=== PATIENT | female | born 1995 | race Caucasian/White ===

== ENCOUNTER 2020-09-26 18:54 | Emergency (ER) | payer MEDICAID, SELFPAY ==
[2020-09-26 19:58] LABS: COVID-19 Test Negative (Negative)
[2020-09-26 20:54] VITALS: PULSE 86; RESP 18; TEMP 37.3; O2SAT 96; BMI 53.7
--- NOTE | 2020-09-26 21:25 | ED_ITS ---
HPI - URI/Sore Throat General Chief Complaint: Upper Respiratory Symptoms Stated Complaint: SOB, Diff breathing Time Seen by Provider: 09/26/20 21:24 Source: patient Mode of arrival: ambulatory History of Present Illness HPI Narrative: 25-year-old female, every day smoker, presents with with complaints of shortness of breath without a history of asthma, sore throat, cough with greenish sputum since this morning. Otherwise she denies any fever, chills, GI symptoms or symptoms. She does endorse that she had COVID-19 in the beginning of August. Related Data Previous Rx's Medication Instructions Recorded prednisone 40 mg PO DAILY 4 Days #8 tab 09/26/20 Allergies Allergy/AdvReac Type Severity Reaction Status Date / Time No Known Allergies Allergy Unverified 12/26/19 16:24 Review of Systems Review of Systems: Pertinent positives and negatives as stated in HPI 10 point review of systems is otherwise negative. PMFSH Past Medical History Source: nursing notes reviewed Medical History No known health problems Social History Social History Advance Directives: No Advance Directives Information Provided: Yes Patient : No Physical Exam Vital Signs: Vital Signs: Last Vital Signs Temp 99.1 F 09/26/20 20:54 Pulse 86 09/26/20 20:54 Resp 18 09/26/20 20:54 Pulse Ox 96 09/26/20 20:54 Body Mass Index 53.7 VITAL SIGNS: Reviewed. GENERAL: Well developed, well nourished, in no acute distress. HEAD: Normocephalic/atraumatic EYES: PERRLA, EOMI EARS: Ext canals without abnormality OROPHARYNX: no oral lesions noted, posterior pharynx clear NECK: Supple, no adenopathy LUNGS: Normal breath sounds. No adventitious sounds or accessory muscle use. SpO2<96> CARDIOVASCULAR: Regular rate and rhythm without noted murmurs ABDOMEN: Soft, non-tender, non-distended with bowel sounds. Course Course Course Narrative: This is a 25-year-old female with history and clinical presentation consistent with bronchitis. Patient was counseled on smoking cessation, provided with albuterol inhaler as well as initial dose of prednisone. MDM - URI/Sore Throat Lab Data Labs: Lab Results 09/26/20 Range/Units 19:31 COVID-19 ([facility]) Negative (Negative) COVID-19 Clin Com See Note Discharge Plan Discharge Clinical Impression: Bronchitis Patient Disposition: Home, Self-Care Instructions: Acute Bronchitis (ED) Additional Instructions: Return to the ER for worsening symptoms. Follow-up with your primary care provider in the next 2-3 days for re- evaluation. Prescriptions: New prednisone 20 mg tablet 40 mg PO DAILY 4 Days Qty: 8 RF: 0 Referrals: [facility] [Primary Care Provider] - 2 days
[2020-09-26] MEDS: Albuterol Sulfate 90 MCG 8 GM INHALER 4 PUFF INHALE (21:44)
[2020-09-26 21:45] VITALS: PULSE 86; O2SAT 96
[2020-09-26] MEDS: predniSONE 20 MG TABLET 40 MG PO (22:03)
== END 2020-09-27 00:06 | disposition home or self-care (01) ==
PROVIDERS: Emergency Provider Student in an Organized Health Care Education/Training Program
DX: J40 Bronchitis, not specified as acute or chronic (principal); F17.200 Nicotine dependence, unspecified, uncomplicated; Z20.822 Contact with and (suspected) exposure to COVID-19
CPT/HCPCS: 36415; 87635; 94640; 99283; 99284

== ENCOUNTER 2021-09-29 13:50 | Emergency (ER) | payer MEDICAID, SELFPAY ==
--- NOTE | ~2021-09-29 | XR_ITS ---
EXAMINATION: XR CHEST CLINICAL INFORMATION: Cough and fever COMPARISON: Previous chest x-ray April 2017 TECHNIQUE: 2 views of the chest were obtained. FINDINGS: No significant abnormality is noted involving the heart, lungs, mediastinum, bony thorax or soft tissues. XR/XR chest 2V IMPRESSION: Unremarkable examination.
[2021-09-29 14:18] VITALS: BP 193/70; PULSE 99; RESP 20; TEMP 36.7; O2SAT 97; BMI 51.7
[2021-09-29 14:47] LABS: COVID-19 Test Negative (Negative)
--- NOTE | 2021-09-29 14:47 | ED_ITS ---
HPI - URI/Sore Throat General Chief Complaint: Upper Respiratory Symptoms Stated Complaint: bronchitis, cvoid test Time Seen by Provider: 09/29/21 14:24 Source: patient Mode of arrival: ambulatory Limitations: no limitations History of Present Illness HPI Narrative: 26-year-old female with history of bronchitis here with 2 days of cough which is productive with green sputum, chills, subjective fever, wheezing. No chest pain, leg swelling, leg pain. No vomiting, diarrhea, abdominal pain. History of bronchitis in the past. Patient ran out of her inhaler. She is also seeking a COVID test Related Data Previous Rx's Medication Instructions Recorded prednisone 20 mg tablet 40 mg PO DAILY 4 days #8 tabs 09/26/20 azithromycin 250 mg tablet See Rx Instructions PO .COMPLEX #6 09/29/21 tabs benzonatate 200 mg capsule 200 mg PO TID PRN cough #20 caps 09/29/21 prednisone 20 mg tablet 40 mg PO DAILY #8 tabs 09/29/21 Allergies Allergy/AdvReac Type Severity Reaction Status Date / Time No Known Allergies Allergy Unverified 12/26/19 16:24 Review of Systems Review of Systems: Yes all other systems are reviewed and are negative Constitutional: Constitutional: Reports no additional constitutional complaints, Denies body ache(s), Reports chills, Reports fever(s), Denies headache(s) and Denies weakness Eyes: Eyes: Reports no additional eye complaints and Denies change in vision ENT: Reports system reviewed and no additional complaints, except as documented, Denies dizziness, Denies headache(s), Denies nasal congestion, Denies nasal discharge and Denies neck pain Cardiovascular: Cardiovascular: Reports no additional cardiovascular complaints, Denies chest pain, Denies leg edema and Denies dyspnea Respiratory: Respiratory: Reports no additional respiratory complaints, Repo rts cough, Denies dyspnea and Reports wheezing Gastrointestinal: Gastrointestinal: Reports no additional gastrointestinal complaints, Denies abdominal pain, Denies diarrhea, Denies nausea and Denies vomiting Genitourinary: Genitourinary: Reports no additional female genitourinary complaints and Denies urinary incontinence Musculoskeletal: Musculoskeletal: Reports no additional musculoskeletal complaints, Denies back pain, Denies arthralgias, Denies joint swelling, Denies neck pain, Denies numbness and Denies tingling Integumentary/Breasts: Skin/Breast: Reports system reviewed and no additional complaints, except as docu and Denies rash Neurologic: Reports system reviewed and no additional complaints, except as documented, Denies Abnormal speech present, Denies dizziness, Denies headache(s), Denies numbness, Denies tingling and Denies weakness Allergic/Immunologic: Allergic/Immunologic: Reports wheezing [facility] Past Medical History Attestation statement: The following information was validated with the patient. Source: old records reviewed and nursing notes reviewed Medical History No known health problems Social History Social History Advance Directives: No Advance Directives Information Provided: No Physical Exam Vital Signs: Vital Signs: Last Vital Signs Temp 98.0 F 09/29/21 14:18 Pulse 96 09/29/21 15:13 Resp 20 09/29/21 15:13 BP 193/70 H 09/29/21 14:18 Pulse Ox 97 09/29/21 14:18 O2 Del Method 09/29/21 14:18 BMI result Body Mass Index 51.7 Const: General: cooperative, healthy appearing, comfortable and no acute distress Orientation/consciousness: patient oriented x3 Limitations: no limitations HEENT: Head: Yes normal to inspection Ears: hearing grossly normal bilaterally General nose exam: Normal external nose present Face and sinus: Yes normal facial exam Mouth: Normal oral and palatal mucosa present Throat: Yes posterior oropharynx normal Eyes: General: appearance normal, both eyes and all related structures Pupils: Equal, round and reactive pupils present Neck: Neck: Yes normal visual inspection Chest: Chest palpation & inspection: normal inspection of the chest Resp: Other: Expiratory wheezing throughout Effort & Inspection: normal respiratory effort Cardio: Rate: regular rate Rhythm: regular rhythm Peripheral pulses: Peripheral pulses 2+ throughout GI: Inspection: Yes normal to inspection Palpation (GI): Soft to palpation and nontender Auscultation: normal bowel sounds Back/Spine/Pelvis: Thoracic/Lumbar Spine: thoracic and lumbar spine normal to inspection Skin: General skin exam: no rashes or lesions noted Neuro: General: patient oriented x3, no focal motor deficits and normal sensation to monofilament Cranial nerves: Yes Equal, round and reactive pupils present Cognition (Neuro): normal cognition Speech: No Abnormal spe ech present Gait exam (Neuro): Normal gait present Motor exam (neuro): 5/5 motor strength present throughout Extrem: General: Yes normal to inspection Course Course Course Narrative: Chest x-ray shows no acute finding. COVID screen is negative. Will treat for bronchitis with course of antibiotics and prednisone. Patient will also be sent home with albuterol MDI. Reviewed worrisome signs and symptoms of when to return to the emergency department. Comfortable discharge home. MDM - URI/Sore Throat MDM Narrative Medical decision making narrative: 26-year-old female with a history of bronchitis here with 2 days of productive cough, wheezing, difficulty breathing at times, subjective fevers. On arrival vitals are stable. Patient has expiratory wheezing throughout. Rapid COVID negative. Will give albuterol MDI, p.o. prednisone, check chest x-ray Medical Records Attestation: I reviewed the patient's medical records. Lab Data Attestation: I reviewed the patient's lab results. Labs: Lab Results 09/29/21 Range/Units 14:22 COVID-19 ([facility]) Negative (Negative) COVID-19 Clin Com See Note Imaging Data Chest x-ray: Attestation: I personally reviewed and interpreted this imaging study as follows: Radiologist's impression: [address] [address] XRay Report Signed Patient: Jessica Ma MR#: [id number] : 1995 Acct:[id number] Age/Sex: 26 / F ADM Date: 09/29/21 Loc: .ED Attending Dr: Ordering Physician: Arlene Mahoney NP Date of Service: 09/29/21 Procedure(s): XR chest 2V Accession Number(s): [id number] cc: Arlene Mahoney NP~ EXAMINATION: XR CHEST CLINICAL INFORMATION: Cough and fever COMPARISON: Previous chest x-ray April 2017 TECHNIQUE: 2 views of the chest were obtained. FINDINGS: No significant abnormality is noted involving the heart, lungs, mediastinum, bony thorax or soft tissues. XR/XR chest 2V IMPRESSION: Unremarkable examination. Discharge Plan Discharge Clinical Impression: Bronchitis Patient Disposition: Home, Self-Care Instructions: How to Use a Metered-Dose Inhaler (ED), Acute Bronchitis (ED) Additional Instructions: COVID test is negative Chest x-ray shows no evidence of pneumonia. Use the inhaler 2 puffs every 4-6 hours as needed for cough or wheezing Return for increasing shortness of breath, chest pain Prescriptions: New prednisone 20 mg tablet 40 mg PO DAILY Qty: 8 0RF azithromycin 250 mg tablet See Rx Instructions .ROUTE .COMPLEX Qty: 6 0RF Rx Instructions: For 250 mg dose pack: take 500 mg today (day 1), then 250 mg for 4 days (days 2-5) benzonatate 200 mg capsule 200 mg PO TID PRN (Reason: cough) Qty: 20 0RF No Action prednisone 20 mg tablet 40 mg PO DAILY 4 Days Qty: 8 0RF Referrals: [facility] [Primary Care Provider] - Stand Alone Forms: Work/School Release
[2021-09-29] MEDS: predniSONE 20 MG TABLET 60 MG PO (15:01)
[2021-09-29] MEDS: Albuterol Sulfate 90 MCG 8 GM INHALER 2 PUFF INHALE (15:11)
[2021-09-29 15:13] VITALS: PULSE 96; RESP 20; O2SAT 94
== END 2021-09-29 16:18 | disposition home or self-care (01) ==
PROVIDERS: Emergency Provider Emergency Medicine
DX: J40 Bronchitis, not specified as acute or chronic (principal); R05.9 Cough, unspecified; R50.9 Fever, unspecified; Z20.822 Contact with and (suspected) exposure to COVID-19; Z79.899 Other long term (current) drug therapy
CPT/HCPCS: 71046; 87635; 94640; 99284

== ENCOUNTER 2021-11-11 16:33 | Emergency (ER) | payer MEDICAID, SELFPAY ==
[2021-11-11 17:28] VITALS: BP 127/60; PULSE 79; RESP 16; TEMP 36.7; O2SAT 97; BMI 51.7
[2021-11-11 17:56] LABS: Appearance Urine CLEAR; Color Urine YELLOW; Glucose Urine UA NEG (NEG); Leukocyte Esterase Urine NEG (NEG); Nitrite Urine NEG (NEG); Specific Gravity - Urine 1.025 (1.005-1.025); Urine Blood NEG (NEG); Urine Ketones NEG (NEG); Urine Protein NEG (NEG-TRACE)
[2021-11-11 17:59] LABS: Strep A Nucleic Acid Negative (Negative)
[2021-11-11 17:59] LABS: UPreg QC Valid YES; Urine Pregnancy NEGATIVE (NEGATIVE)
[2021-11-11 18:01] LABS: COVID-19 Test Negative (Negative); IDNOW Serial# 16C4AD1C
--- NOTE | 2021-11-11 19:19 | ED_ITS ---
HPI - General Adult General Chief complaint: General Medical Stated complaint: burning when urinating also ? sinus infection Time Seen by Provider: 11/11/21 19:15 Source: patient Mode of arrival: ambulatory Limitations: no limitations History of Present Illness HPI narrative: Patient comes to emergency room complaining of ear pain, sore throat, congestion and dysuria. Patient states all of her symptoms started 3 days ago. Patient denies fever chills Related Data Previous Rx's Medication Instructions Recorded prednisone 20 mg tablet 40 mg PO DAILY 4 days #8 tabs 09/26/20 azithromycin 250 mg tablet See Rx Instructions PO .COMPLEX #6 09/29/21 tabs benzonatate 200 mg capsule 200 mg PO TID PRN cough #20 caps 09/29/21 prednisone 20 mg tablet 40 mg PO DAILY #8 tabs 09/29/21 Allergies Allergy/AdvReac Type Severity Reaction Status Date / Time No Known Allergies Allergy Verified 11/11/21 17:31 Review of Systems Review of Systems: Constitutional : No Weight loss, No Fever, No Chills, No Night Sweats, No Fatigue, No Malaise ENT/Mouth : No Hearing loss, complaining of bilateral ear discomfort, nasal congestion, mild sore throat Eyes: No Eye Pain, No Swelling, No Redness, No Foreign Body, No Discharge, No Vision Changes Cardiovascular : No Chest Pain, No SOB, No Dyspnea on Exertion, No Orthopnea, No Edema, No Palpitations Respiratory : No Cough, No Sputum, No Wheezing, No Smoke Exposure, No Dyspnea Gastrointestinal : No Nausea, No Vomiting, No Diarrhea, No Constipation, No abdominal Pain, No Hematochezia, No Melena Genitourinary : no irregular bleeding, complaining of Dysuria, No Urinary Frequency, No Hematuria, No Urinary Incontinence, No Urgency, No Flank Pain, No Urinary Flow Changes, No Hesitancy Musculoskeletal : No joint pain, No Myalgias, No Joint Swelling Skin : No Skin Lesions, No rash Neuro : No Weakness, No Numbness, No Paresthesias, No Loss of Consciousness, No Dizziness, No Headache Psych : No Anxiety/Panic, No Depression, No SI/HI/AH/VH, No Social Issues, Heme/Lymph: No Bruising, No Bleeding,No Lymphadenopathy Endocrine : No Polyuria, No Polydipsia, No Temperature Intolerance PMFSH Past Medical History Medical History No known health problems Physical Exam ED Vital Signs: Vital Signs - 24 hr 11/11/21 17:28 Temperature 98.0 F Pulse Rate 79 Respiratory Rate 16 Blood Pressure 127/60 Pulse Oximetry 97 Oxygen Delivery Method Room Air BMI result Body Mass Index 51.7 Const Other: Appearance: Alert. Oriented X3. No acute distress. Eyes: Pupils equal, round and reactive to light. ENT: Mildly erythematous oropharynx, no vesicles, no exudates, no abscesses Neck: Normal inspection. Neck supple. No lymph nodes noted. No crepitus CVS: Normal heart rate and rhythm. Pulses normal. Normal S1 and S2 Respiratory: No respiratory distress. Breath sounds normal. No Wheezing. No rales Abdomen: Soft and nontender. No rigidity. No distention. Skin: Skin warm and dry. Normal skin color. Normal skin turgor. Extremities: No lower extremity edema. No Lacerations. No Rash Neuro: Oriented X 3. No motor deficit. No sensory deficit. Moving all extremities. No slurred speech. CN 2 through 12 grossly intact Psych: calm, cooperative, normal affect Course Course Course Narrative: Patient tested negative for COVID-19, strep, negative test, negative for UTI. Patient likely has a viral syndrome. Medical Decision Making Lab Data Labs: Lab Results 11/11/21 11/11/21 11/11/21 Range/Units 17:36 17:36 17:48 Urine Color YELLOW Urine Appearance CLEAR Urine pH 6.0 (5.0-8.0) Ur Specific [place] 1.025 (1.005-1.025) Urine Protein NEG (NEG-TRACE) MG/DL Urine Glucose (UA) NEG (NEG) MG/DL Urine Ketones NEG (NEG) MG/DL Urine Blood NEG (NEG) Urine Nitrite NEG (NEG) Ur Leukocyte Esterase NEG (NEG) Urine Test (NEGATIVE) COVID-19 ([facility]) Negative (Negative) COVID-19 Clin Com See Note S. pyogenes GrpA LEON Negative (Negative) 11/11/21 Range/Units 17:48 Urine Color Urine Appearance Urine pH (5.0-8.0) Ur Specific [place] (1.005-1.025) Urine Protein (NEG-TRACE) MG/DL Urine Glucose (UA) (NEG) MG/DL Urine Ketones (NEG) MG/DL Urine Blood (NEG) Urine Nitrite (NEG) Ur Leukocyte Esterase (NEG) Urine Test NEGATIVE (NEGATIVE) COVID-19 ([facility]) (Negative) COVID-19 Clin Com S. pyogenes GrpA LEON (Negative) Discharge Plan Discharge Clinical Impression: Acute viral syndrome Patient Disposition: Home, Self-Care Instructions: Viral Syndrome (ED) Additional Instructions: Please follow-up with your primary care physician tomorrow. If you have any worsening or new symptoms, please return to the emergency room or call 911 Prescriptions: No Action prednisone 20 mg tablet 40 mg PO DAILY 4 Days Qty: 8 0RF prednisone 20 mg tablet 40 mg PO DAILY Qty: 8 0RF azithromycin 250 mg tablet See Rx Instructions .ROUTE .COMPLEX Qty: 6 0RF Rx Instructions: For 250 mg dose pack: take 500 mg today (day 1), then 250 mg for 4 days (days 2-5) benzonatate 200 mg capsule 200 mg PO TID PRN (Reason: cough) Qty: 20 0RF
== END 2021-11-11 19:34 | disposition home or self-care (01) ==
PROVIDERS: Emergency Provider Emergency Medicine
DX: B34.9 Viral infection, unspecified (principal); Z20.822 Contact with and (suspected) exposure to COVID-19; H92.03 Otalgia, bilateral
CPT/HCPCS: 81003; 81025; 87635; 87651; 99282; 99283

== ENCOUNTER 2022-04-24 16:14 | Emergency (ER) | payer MEDICAID, SELFPAY ==
[2022-04-24 16:35] VITALS: BP 139/67; PULSE 76; RESP 18; TEMP 36.5; O2SAT 98; BMI 54.5
--- NOTE | 2022-04-24 16:38 | ED.GENADULT ---
HPI - General Adult General Chief complaint: Dental/Oral <PACO Aguilar - Last Filed: 04/24/22 18:46> Stated complaint: tonsilitis? <PACO Aguilar - Last Filed: 04/24/22 18:46> Time Seen by Provider: 04/24/22 17:12 <PACO Aguilar - Last Filed: 04/24/22 18:46> Source: patient <Flakito Rosa MD - Last Filed: 04/24/22 17:54> Mode of arrival: ambulatory <Flakito Rosa MD - Last Filed: 04/24/22 17:54> Limitations: no limitations <Flakito Rosa MD - Last Filed: 04/24/22 17:54> History of Present Illness HPI narrative: Patient history of enlarged tonsils with recurrent infection had strep throat 2 months ago taking antibiotics plan to see ENT specialist for tonsillectomy comes here for throat pain no fever no chills last few days <Flakito Rosa MD - Last Filed: 04/24/22 17:54> Related Data Home medications: Previous Rx's Medication Instructions Recorded prednisone 20 mg tablet 40 mg PO DAILY 4 days #8 tabs 09/26/20 azithromycin 250 mg tablet See Rx Instructions PO .COMPLEX #6 09/29/21 tabs benzonatate 200 mg capsule 200 mg PO TID PRN cough #20 caps 09/29/21 prednisone 20 mg tablet 40 mg PO DAILY #8 tabs 09/29/21 cefuroxime axetil 500 mg tablet 500 mg PO BID #20 tabs 04/24/22 <PACO Aguilar - Last Filed: 04/24/22 18:46> Allergies/adverse reactions: Allergies Allergy/AdvReac Type Severity Reaction Status Date / Time No Known Allergies Allergy Verified 04/24/22 16:34 <PACO Aguilar - Last Filed: 04/24/22 18:46> Review of Systems Review of Systems: Yes all other systems are reviewed and are negative <Flakito Rosa MD - Last Filed: 04/24/22 17:54> PMFSH Past Medical History Medical History: Medical History No known health problems <PACO Aguilar - Last Filed: 04/24/22 18:46> Social History Social History: Social History Advance Directives: No Advance Directives Information Provided: Yes <PACO Aguilar - Last Filed: 04/24/22 18:46> Physical Exam ED Vital Signs: Vital Signs - 24 hr 04/24/22 16:35 Temperature 97.7 F Pulse Rate 76 Respiratory Rate 18 Blood Pressure 139/67 Pulse Oximetry 98 Oxygen Delivery Method Room Air BMI result Body Mass Index 54.5 <PACO Aguilar - Last Filed: 04/24/22 18:46> Vital Signs - 24 hr 04/24/22 16:35 Temperature 97.7 F Pulse Rate 76 Respiratory Rate 18 Blood Pressure 139/67 Pulse Oximetry 98 Oxygen Delivery Method Room Air BMI result Body Mass Index 54.5 <Flakito Rosa MD - Last Filed: 04/24/22 17:54> Appearance: Alert. Oriented X3. No acute distress. Obese ENT: Enlarged tonsils slightly erythematous no exudate Oral Mucosa moist Neck: Normal inspection. Neck supple. CVS: Normal heart rate and rhythm. Pulses normal. Respiratory: No respiratory distress. Equal air entry bilateral, Neuro: Oriented X 3. <Flakito Rosa MD - Last Filed: 04/24/22 17:54> Course Course Course Narrative: RME; sore throat for months and recurrend tonsillitis with scheduled tonsillecotmy in june presents to the ED for sore throat. physcial exam negative for signs of PEritonsillar abscess. Strep and SARS ordered <PACO Aguilar - Last Filed: 04/24/22 18:46> Medications Administered Discontinued Medications Generic Name Dose Route Start Last Admin Trade Name Freq PRN Reason Stop Dose Admin Cefuroxime Axetil 500 mg 04/24/22 17:21 04/24/22 17:40 Cefuroxime Axetil 500 Mg Tablet PO 04/24/22 17:22 500 mg ONCE ONE Administration <PACO Aguilar - Last Filed: 04/24/22 18:46> Medications Administered Discontinued Medications Generic Name Dose Route Start Last Admin Trade Name Freq PRN Reason Stop Dose Admin Cefuroxime Axetil 500 mg 04/24/22 17:21 04/24/22 17:40 Cefuroxime Axetil 500 Mg Tablet PO 04/24/22 17:22 500 mg ONCE ONE Administration <Flakito Rosa MD - Last Filed: 04/24/22 17:54> Medical Decision Making Medical Decision Making [facility] Narrative: Patient's strep throat will give her Ceftin advised to follow with ENT for further management for enlarged tonsils with recurrent infection <Flakito Rosa MD - Last Filed: 04/24/22 17:54> Lab Data [facility] Lab Attestation statement: I reviewed the patient's lab results. <Flakito Rosa MD - Last Filed: 04/24/22 17:54> Labs: Lab Results 04/24/22 04/24/22 Range/Units 17:03 17:03 Influenza Type A (PCR) NEGATIVE (Negative) Influenza Type B (PCR) NEGATIVE (Negative) RSV RNA Qual (PCR) NEGATIVE (Negative) SARS-CoV-2 RNA (RT-PCR) NEGATIVE (Negative) S. pyogenes GrpA LEON Positive A (Negative) <PACO Aguilar - Last Filed: 04/24/22 18:46> Lab Results 04/24/22 04/24/22 Range/Units 17:03 17:03 Influenza Type A (PCR) NEGATIVE (Negative) Influenza Type B (PCR) NEGATIVE (Negative) RSV RNA Qual (PCR) NEGATIVE (Negative) SARS-CoV-2 RNA (RT-PCR) NEGATIVE (Negative) S. pyogenes GrpA LEON Positive A (Negative) <Flakito Rosa MD - Last Filed: 04/24/22 17:54> Discharge Plan Discharge Clinical Impression: Acute streptococcal pharyngitis <PACO Aguilar - Last Filed: 04/24/22 18:46> Patient Disposition: Home, Self-Care <PACO Aguilar Last Filed: 04/24/22 18:46> Instructions: Strep Throat (ED) <PACO Aguilar Last Filed: 04/24/22 18:46> Additional Instructions: Take antibiotic as prescribed Saline gargles as advised Follow-up with the ENT as scheduled <PACO Aguilar Last Filed: 04/24/22 18:46> Prescriptions: New cefuroxime axetil 500 mg tablet 500 mg PO BID Qty: 20 0RF No Action prednisone 20 mg tablet 40 mg PO DAILY 4 Days Qty: 8 0RF prednisone 20 mg tablet 40 mg PO DAILY Qty: 8 0RF azithromycin 250 mg tablet See Rx Instructions .ROUTE .COMPLEX Qty: 6 0RF Rx Instructions: For 250 mg dose pack: take 500 mg today (day 1), then 250 mg for 4 days (days 2-5) benzonatate 200 mg capsule 200 mg PO TID PRN (Reason: cough) Qty: 20 0RF <PACO Aguilar - Last Filed: 04/24/22 18:46> Interventions: ED Discharge Assessment Last Done: 04/24/22 17:41 <PACO Aguilar - Last Filed: 04/24/22 18:46> Discharge Date/Time: 04/24/22 17:41 <PACO Aguilar - Last Filed: 04/24/22 18:46>
--- NOTE | 2022-04-24 17:13 | PC.NURSE ---
covid/flu/rsv/strep swabs obtained, tonsils are swollen, red and inflamed.
[2022-04-24 17:14] LABS: IDNOW Serial# 08D9AD1C; Strep A Nucleic Acid Positive (Negative)
[2022-04-24 17:51] LABS: Influenza A PCR NEGATIVE (Negative); Influenza B PCR NEGATIVE (Negative); Resp Syncy Virus RNA Qual PCR NEGATIVE (Negative); SARS COV2 PCR INHOUSE NEGATIVE (Negative)
== END 2022-04-24 17:41 | disposition home or self-care (01) ==
PROVIDERS: Physician Assistant; Emergency Provider Internal Medicine
DX: J02.0 Streptococcal pharyngitis (principal); Z20.822 Contact with and (suspected) exposure to COVID-19; Z20.828 Contact with and (suspected) exposure to other viral communicable diseases; Z79.899 Other long term (current) drug therapy
CPT/HCPCS: 0241U; 87651; 99282

== ENCOUNTER 2022-05-30 11:47 | Emergency (ER) | payer MEDICAID, SELFPAY ==
--- NOTE | ~2022-05-30 | XR_ITS ---
EXAMINATION: XR CHEST CLINICAL INFORMATION: Cough and fever COMPARISON: Previous chest x-ray most recent September 2021 TECHNIQUE: 2 views of the chest were obtained. FINDINGS: The cardiac and mediastinal contours are normal. There are increased markings and bronchial wall thickening in the left lower lobe questionable for bronchitis or small bronchopneumonia. The right lung is clear. No pleural effusion or pneumothorax. Bony structures are normal. XR/XR chest 2V IMPRESSION: Question left lower lobe bronchitis or small bronchopneumonia
[2022-05-30 12:23] VITALS: BP 131/98; PULSE 94; RESP 18; TEMP 36.6; O2SAT 97; BMI 38.4
--- NOTE | 2022-05-30 12:25 | ED.FEVER ---
HPI - Fever General Chief Complaint: Upper Respiratory Symptoms <PACO Diaz - Last Filed: 05/30/22 12:26> Stated Complaint: Fever/Bronchitis? <PACO Diaz - Last Filed: 05/30/22 12:26> Time Seen by Provider: 05/30/22 13:57 <PACO Diaz - Last Filed: 05/30/22 12:26> History of Present Illness HPI Narrative: Patient complains of productive cough times 2 days along with chest tightness and wheezing which is intermittent, this is similar to prior episodes when she gets bronchitis and wheezing similar to asthma Right now she has no wheezing chest tightness or shortness of breath no chest pain, no difficulty breathing or swallowing no sore throat no nausea vomiting or diarrhea no leg swelling no calf pain no calf swelling <PACO Erwin - Last Filed: 06/26/22 14:55> Related Data Home Medications: Previous Rx's Medication Instructions Recorded prednisone 20 mg tablet 40 mg PO DAILY 4 days #8 tabs 09/26/20 azithromycin 250 mg tablet See Rx Instructions PO .COMPLEX #6 09/29/21 tabs benzonatate 200 mg capsule 200 mg PO TID PRN cough #20 caps 09/29/21 prednisone 20 mg tablet 40 mg PO DAILY #8 tabs 09/29/21 cefuroxime axetil 500 mg tablet 500 mg PO BID #20 tabs 04/24/22 albuterol sulfate 90 mcg/actuation 2 puff inhalation Q4-6H PRN 05/30/22 aerosol inhaler shortness of breath or wheezing #8.5 grams doxycycline hyclate 100 mg capsule 100 mg PO BID 7 days #14 caps 05/30/22 prednisone 20 mg tablet 60 mg PO DAILY 4 days #12 tabs 05/30/22 <PACO Diaz - Last Filed: 05/30/22 12:26> Allergies/Adverse Reactions: Allergies Allergy/AdvReac Type Severity Reaction Status Date / Time No Known Allergies Allergy Verified 05/30/22 12:23 <PACO Diaz - Last Filed: 05/30/22 12:26> PMFSH Past Medical History Source: nursing notes reviewed <PACO Erwin - Last Filed: 06/26/22 14:55> Medical History: Medical History No known health problems <PACO Diaz - Last Filed: 05/30/22 12:26> Social History Social History: Social History Advance Directives: No Advance Directives Information Provided: No <PACO Diaz - Last Filed: 05/30/22 12:26> Physical Exam Vital Signs: Vital Signs: Last Vital Signs Temp 97.8 F 05/30/22 14:14 Pulse 93 05/30/22 14:14 Resp 14 05/30/22 14:14 BP 99/75 05/30/22 14:14 Pulse Ox 95 05/30/22 14:14 O2 Del Method 05/30/22 14:14 BMI result Body Mass Index 38.4 <PACO Diaz - Last Filed: 05/30/22 12:26> Vital Signs: Last Vital Signs Temp 97.8 F 05/30/22 14:14 Pulse 93 05/30/22 14:14 Resp 14 05/30/22 14:14 BP 99/75 05/30/22 14:14 Pulse Ox 95 05/30/22 14:14 O2 Del Method 05/30/22 14:14 BMI result Body Mass Index 38.4 <PACO Erwin - Last Filed: 06/26/22 14:55> General appearance no acute distress Eyes no redness no discharge The nose no sinus tenderness The pharynx clear no redness swelling or exudate, membranes moist Neck is supple Chest is clear to auscultation bilateral full symmetric equal breath sounds no adventitious sounds Heart no murmur Abdomen soft nontender Extremities full range of motion x4 no edema no calf tenderness or swelling Skin no rash Neuro no focal deficits <PACO Erwin - Last Filed: 06/26/22 14:55> Course Course Course Narrative: RME - 26 yo female with history of recurrent bronchitis presenting for evaluation of fever 100 last night along with chest tightness, cough productive of green phlegm and vomiting x1. She feels SOB. Speaking in complete sentences in triage, VSS. Will get CXR to r/o PNA and check COVID/Flu swabs. <PACO Diaz - Last Filed: 05/30/22 12:26> RME - 26 yo female with history of recurrent bronchitis presenting for evaluation of fever 100 last night along with chest tightness, cough productive of green phlegm and vomiting x1. She feels SOB. Speaking in complete sentences in triage, VSS. Will get CXR to r/o PNA and check COVID/Flu swabs. Patient is breathing comfortably and well-appearing Chest x-ray was positive for left lower lobe bronchopneumonia COVID and flu test were negative and well-appearing patient is treated for possible early pneumonia with antibiotic doxycycline and prednisone for wheezing and given a script for albuterol <PACO Erwin - Last Filed: 06/26/22 14:55> Medications Administered Discontinued Medications Generic Name Dose Route Start Last Admin Trade Name Freq PRN Reason Stop Dose Admin Doxycycline Monohydrate 100 mg 05/30/22 15:58 05/30/22 16:09 Doxycycline Monohydrate 100 Mg Capsule PO 05/30/22 15:59 100 mg ONCE ONE Administration Prednisone 60 mg 05/30/22 16:03 05/30/22 16:09 Prednisone 20 Mg Tablet PO 05/30/22 16:04 60 mg ONCE ONE Administration <PACO Diaz - Last Filed: 05/30/22 12:26> Medications Administered Discontinued Medications Generic Name Dose Route Start Last Admin Trade Name Freq PRN Reason Stop Dose Admin Doxycycline Monohydrate 100 mg 05/30/22 15:58 05/30/22 16:09 Doxycycline Monohydrate 100 Mg Capsule PO 05/30/22 15:59 100 mg ONCE ONE Administration Prednisone 60 mg 05/30/22 16:03 05/30/22 16:09 Prednisone 20 Mg Tablet PO 05/30/22 16:04 60 mg ONCE ONE Administration <PACO Erwin - Last Filed: 06/26/22 14:55> Medical Decision Making Lab Data Labs: Lab Results 05/30/22 05/30/22 Range/Units 12:29 12:29 COVID-19 ([facility]) Negative (Negative) COVID-19 Clin Com See Note Influenza Type A ([facility]) Negative (Negative) Influenza Type B ([facility]) Negative (Negative) Influenza A & B Note See Note <PACO Diaz - Last Filed: 05/30/22 12:26> Lab Results 05/30/22 05/30/22 Range/Units 12:29 12:29 COVID-19 ([facility]) Negative (Negative) COVID-19 Clin Com See Note Influenza Type A ([facility]) Negative (Negative) Influenza Type B ([facility]) Negative (Negative) Influenza A & B Note See Note <PACO Erwin - Last Filed: 06/26/22 14:55> Discharge Plan Discharge Clinical Impression: Bronchitis, Wheezing <PACO Diaz - Last Filed: 05/30/22 12:26> Patient Disposition: Home, Self-Care <PACO Diaz - Last Filed: 05/30/22 12:26> Additional Instructions: Chest x-ray showed possible early pneumonia so we are treating with antibiotic doxycycline We are treating with prednisone for wheezing and an inhaler to use if needed Return any time difficulty breathing any worse condition or concerns Follow with your doctor <PACO Diaz - Last Filed: 05/30/22 12:26> Prescriptions: New prednisone 20 mg tablet 60 mg PO DAILY 4 Days Qty: 12 0RF albuterol sulfate 90 mcg/actuation HFA aerosol inhaler 2 puff inhalation Q4-6H PRN (Reason: shortness of breath or wheezing) Qty: 8.5 0RF doxycycline hyclate 100 mg capsule 100 mg PO BID 7 Days Qty: 14 0RF No Action prednisone 20 mg tablet 40 mg PO DAILY 4 Days Qty: 8 0RF prednisone 20 mg tablet 40 mg PO DAILY Qty: 8 0RF azithromycin 250 mg tablet See Rx Instructions .ROUTE .COMPLEX Qty: 6 0RF Rx Instructions: For 250 mg dose pack: take 500 mg today (day 1), then 250 mg for 4 days (days 2-5) benzonatate 200 mg capsule 200 mg PO TID PRN (Reason: cough) Qty: 20 0RF cefuroxime axetil 500 mg tablet 500 mg PO BID Qty: 20 0RF <PACO Diaz - Last Filed: 05/30/22 12:26> Interventions: ED Discharge Assessment Last Done: 05/30/22 16:13 <PACO Diaz Last Filed: 05/30/22 12:26> Discharge Date/Time: 05/30/22 16:14 <PACO Diaz - Last Filed: 05/30/22 12:26>
[2022-05-30 12:56] LABS: COVID-19 Test Negative (Negative); IDNOW Serial# 16C4AD1C; IDNOW Serial# BCCEAD1C; Influenza A Negative (Negative); Influenza B2 Negative (Negative)
[2022-05-30 14:14] VITALS: BP 99/75; PULSE 93; RESP 14; TEMP 36.6; O2SAT 95
[2022-05-30] MEDS: Doxycycline Monohydrate 100 MG CAPSULE PO (16:09)
[2022-05-30] MEDS: predniSONE 20 MG TABLET 60 MG PO (16:09)
== END 2022-05-30 16:14 | disposition home or self-care (01) ==
PROVIDERS: Physician Assistant; Emergency Provider Emergency Medicine
DX: J40 Bronchitis, not specified as acute or chronic (principal); R07.89 Other chest pain; R06.02 Shortness of breath; Z20.822 Contact with and (suspected) exposure to COVID-19; Z20.828 Contact with and (suspected) exposure to other viral communicable diseases; Z79.899 Other long term (current) drug therapy
CPT/HCPCS: 71046; 87502; 87635; 99283

== ENCOUNTER 2022-10-21 17:57 | Outpatient (REF) | payer MEDICAID, SELFPAY | END 2022-10-21 17:58 | disposition home or self-care (01) | LOC: HO.HHCLNP 17:57 | PROVIDERS: Visit Provider Internal Medicine | DX: Z13.89 Encounter for screening for other disorder (principal) | CPT/HCPCS: 87491; 87591 ==

== ENCOUNTER 2022-10-24 12:53 | Outpatient (REF) | payer MEDICAID, SELFPAY | END 2022-10-24 12:54 | disposition home or self-care (01) | LOC: HO.HHCLNP 12:53 | PROVIDERS: Visit Provider Internal Medicine | DX: Z20.822 Contact with and (suspected) exposure to COVID-19 (principal); J02.9 Acute pharyngitis, unspecified | CPT/HCPCS: 87636 ==

== ENCOUNTER 2022-12-12 12:18 | Emergency (ER) | payer MEDICAID, SELFPAY ==
[2022-12-12 12:29] VITALS: BP 148/86; PULSE 82; RESP 20; TEMP 36.5; O2SAT 97; BMI 54.3
--- NOTE | 2022-12-12 12:30 | ED_ITS ---
HPI - General Adult General Chief complaint: Upper Respiratory Symptoms Stated complaint: sore throat chest hurts Source: patient Mode of arrival: ambulatory Limitations: no limitations History of Present Illness HPI narrative: Patient is a 27-year-old female presenting to the emergency department with complaint of sore throat, productive cough since yesterday. [place] chills, did not check temp. Denies sick contacts. complaint: sore throat, cough Onset (ago): day(s) Radiation: non-radiation Severity: severe Quality: burning Pain Consistency: constant Relieving factors: none Exacerbating factors: eating Associated symptoms: cough and fever/chills Treatments prior to arrival: none Related Data Previous Rx's Medication Instructions Recorded prednisone 20 mg tablet 40 mg PO DAILY 4 days #8 tabs 09/26/20 azithromycin 250 mg tablet See Rx Instructions PO .COMPLEX #6 09/29/21 tabs benzonatate 200 mg capsule 200 mg PO TID PRN cough #20 caps 09/29/21 prednisone 20 mg tablet 40 mg PO DAILY #8 tabs 09/29/21 cefuroxime axetil 500 mg tablet 500 mg PO BID #20 tabs 04/24/22 albuterol sulfate 90 mcg/actuation 2 puff inhalation Q4-6H PRN 05/30/22 aerosol inhaler shortness of breath or wheezing #8.5 grams doxycycline hyclate 100 mg capsule 100 mg PO BID 7 days #14 caps 05/30/22 prednisone 20 mg tablet 60 mg PO DAILY 4 days #12 tabs 05/30/22 albuterol sulfate 90 mcg/actuation 1 inh inhalation Q6H PRN shortness 12/12/22 aerosol inhaler of breath or wheezing #6.7 grams oseltamivir 75 mg capsule (Tamiflu) 75 mg PO BID 5 days #10 caps 12/12/22 prednisone 20 mg tablet 40 mg PO DAILY #10 tabs 12/12/22 Allergies Allergy/AdvReac Type Severity Reaction Status Date / Time No Known Allergies Allergy Verified 05/30/22 12:23 Review of Systems Review of Systems: As per HPI. Yes all other systems are reviewed and are negative Constitutional: Constitutional: Reports as per HPI [facility] Past Medical History Medical History No known health problems Physical Exam ED Vital Signs: Vital Signs - 24 hr 12/12/22 12:29 Temperature 97.7 F Pulse Rate 82 Respiratory Rate 20 Blood Pressure 148/86 H Pulse Oximetry 97 Oxygen Delivery Method Room Air BMI result Body Mass Index 54.3 Vital signs have been reviewed and appear to be correct. Blood pressure elevated. Heart rate normal. Respiratory rate normal. Temperature normal. Oxygen saturation normal. Const General: cooperative, healthy appearing and no acute distress Orientation/consciousness: oriented to person, oriented to place, oriented to time and patient oriented x3 Limitations: no limitations HENMT Head: Yes normocephalic and Yes atraumatic Ears: external ears normal and TM's normal bilaterally General nose exam: Normal external nose present Face and sinus: Yes face symmetric Mouth: oropharynx normal and moist mucous membranes Throat: Yes posterior oropharynx normal, Yes uvula midline, No uvular edema and Yes other (erythema, no edema or exudate) Eyes Pupils: Equal, round and reactive pupils present Neck Neck: Yes normal visual inspection and Yes supple Resp Effort & Inspection: normal respiratory effort and able to speak in complete sentences Auscultation: wheezes scattered wheezes Cardio Rate: regular rate Rhythm: regular rhythm Heart sounds: S1 normal heart sound present and S2 normal heart sound present GI Palpation (GI): Soft to palpation and nontender Auscultation: normoactive bowel sounds General: Yes no CVA tenderness Back/Spine/Pelvis Back: no CVA tenderness Skin General skin exam: elasticity normal and turgor normal Neuro General: oriented to person, oriented to place, oriented to time, patient oriented x3, moves all extremities, no focal motor deficits and CN's II-XI intact bilaterally Cranial nerves: Yes Equal, round and reactive pupils present Cognition (Neuro): normal cognition Extrem General: Yes full ROM, Yes no pedal edema and Yes no calf tenderness Psych Mental Status: mental status grossly normal Affect: normal affect Thought process: Normal thought process present Medical Decision Making Medical Decision Making MDM Narrative: Patient is a 27-year-old female presenting to the emergency department with complaint of sore throat, productive cough since yesterday. On exam patient is awake, A+Ox3, VS WNL, afebrile, normal neurological exam without focal deficits, TMs normal bilat, erythema to posterior oropharynx, no edema or exudate, mild scattered expiratory wheezes, otherwise CTA. Given reported symptoms and physical exam findings, initial differential includes viral illness, Covid, influenza, strep pharyngitis. Swab positive for influenza A, patient updated on results. Discussed potential treatment with Tamiflu, which patient is agreeable to. Will also prescribe short course of prednisone and albuterol inhaler. Advised patient to ensure adequate rest, adequate fluid intake, can treat symptoms with Tylenol, ibuprofen, Mucinex. Advised patient to isolate at home for another 3 days, and wear mask around others while symptomatic after that. Instructed her to follow up with PCP this week. Return precautions discussed at bedside. Patient verbalized understanding of and agreement with plan. Differential Diagnosis Differential Diagnoses: The differential diagnosis associated with the presentation includes As per [facility] Lab Data [facility] Lab Attestation statement: I reviewed the patient's lab results. As per [facility] Labs: Lab Results 12/12/22 12/12/22 12/12/22 Range/Units 13:25 13:25 13:25 COVID-19 ([facility]) Negative (Negative) COVID-19 Clin Com See Note Influenza Type A ([facility]) Positive A (Negative) Influenza Type B ([facility]) Negative (Negative) Influenza A & B Note See Note S. pyogenes GrpA [facility] Negative (Negative) External Record Review External record reviewed: Inpatient record, Office record and Outpatient record Prescription Management I considered prescription management with: Antiviral and Other Discharge Plan Discharge Clinical Impression: Influenza A Patient Disposition: Home, Self-Care Instructions: Influenza (DC), Droplet Precautions (ED) Additional Instructions: You are evaluated in the emergency department today for sore throat, cough, fever. Your flu test was resulted as positive. You should continue to isolate at home for another 3 days. You should continue to wear mask for 5 days after that. You are being prescribed Tamiflu, please complete full course as prescribed. You are also being prescribed short course of prednisone and an albuterol inhaler. Return to the emergency department with worsening shortness of breath, chest pain, fever that does not improve with Tylenol or ibuprofen, persistent vomiting, or any other concerning symptoms. You should follow-up with your primary care provider. Prescriptions: New albuterol sulfate 90 mcg/actuation HFA aerosol inhaler 1 inh inhalation Q6H PRN (Reason: shortness of breath or wheezing) Qty: 6.7 0RF prednisone 20 mg tablet 40 mg PO DAILY Qty: 10 0RF oseltamivir [Tamiflu] 75 mg capsule 75 mg PO BID 5 Days Qty: 10 0RF No Action prednisone 20 mg tablet 40 mg PO DAILY 4 Days Qty: 8 0RF prednisone 20 mg tablet 40 mg PO DAILY Qty: 8 0RF azithromycin 250 mg tablet See Rx Instructions .ROUTE .COMPLEX Qty: 6 0RF Rx Instructions: For 250 mg dose pack: take 500 mg today (day 1), then 250 mg for 4 days (days 2-5) benzonatate 200 mg capsule 200 mg PO TID PRN (Reason: cough) Qty: 20 0RF cefuroxime axetil 500 mg tablet 500 mg PO BID Qty: 20 0RF prednisone 20 mg tablet 60 mg PO DAILY 4 Days Qty: 12 0RF albuterol sulfate 90 mcg/actuation HFA aerosol inhaler 2 puff inhalation Q4-6H PRN (Reason: shortness of breath or wheezing) Qty: 8.5 0RF doxycycline hyclate 100 mg capsule 100 mg PO BID 7 Days Qty: 14 0RF
[2022-12-12 13:56] LABS: IDNOW Serial# 9DB6401D
[2022-12-12 13:57] LABS: Influenza A Positive (Negative); Influenza B2 Negative (Negative)
[2022-12-12 13:58] LABS: IDNOW Serial# 08D9AD1C; Strep A Nucleic Acid Negative (Negative)
[2022-12-12 14:00] LABS: COVID-19 Test Negative (Negative); IDNOW Serial# BCCEAD1C
== END 2022-12-12 14:49 | disposition home or self-care (01) ==
PROVIDERS: Registered Nurse Emergency; Emergency Provider Emergency Medicine
DX: J10.1 Influenza due to other identified influenza virus with other respiratory manifestations (principal); R07.89 Other chest pain; R05.9 Cough, unspecified; R50.9 Fever, unspecified; Z20.822 Contact with and (suspected) exposure to COVID-19; Z20.828 Contact with and (suspected) exposure to other viral communicable diseases; Z79.899 Other long term (current) drug therapy
CPT/HCPCS: 87502; 87635; 87651; 99282; 99283

== ENCOUNTER 2023-01-12 09:32 | Emergency (ER) | payer MEDICAID, SELFPAY ==
[2023-01-12 09:50] VITALS: BP 152/96; PULSE 77; RESP 16; TEMP 36.6; O2SAT 98; BMI 53.2
--- NOTE | 2023-01-12 12:11 | ED.FEMALEGU ---
HPI - Female Genitourinary General Chief complaint: Urogenital-Female Stated complaint: pelvic pain Time Seen by Provider: 01/12/23 12:06 Source: patient Mode of arrival: ambulatory Limitations: no limitations History of Present Illness HPI Narrative: This is a 27-year-old female presenting to the emergency department requesting STD testing, she states she had unprotected sex and think she may have an STD, sometimes she has some pressure when she is urinating, and burning as well as yellow/white discharge. This has been going on for a few days. No history of STDs. Denies abdominal pain, pelvic pain, nausea, vomiting, chest pain, shortness of breath, fevers, chills, flank pain, hematuria at this time. Related Data Previous Rx's Medication Instructions Recorded prednisone 20 mg tablet 40 mg (2 x 20 mg) PO DAILY 4 days 09/26/20 #8 tabs azithromycin 250 mg tablet See Rx Instructions PO .COMPLEX #6 09/29/21 tabs benzonatate 200 mg capsule 200 mg PO TID PRN cough #20 caps 09/29/21 prednisone 20 mg tablet 40 mg (2 x 20 mg) PO DAILY #8 tabs 09/29/21 cefuroxime axetil 500 mg tablet 500 mg PO BID #20 tabs 04/24/22 albuterol sulfate 90 mcg/actuation 2 puff inhalation Q4-6H PRN 05/30/22 aerosol inhaler shortness of breath or wheezing #8.5 grams doxycycline hyclate 100 mg capsule 100 mg PO BID 7 days #14 caps 05/30/22 prednisone 20 mg tablet 60 mg (3 x 20 mg) PO DAILY 4 days 05/30/22 #12 tabs albuterol sulfate 90 mcg/actuation 1 inh inhalation Q6H PRN shortness 12/12/22 aerosol inhaler of breath or wheezing #6.7 grams oseltamivir 75 mg capsule (Tamiflu) 75 mg PO BID 5 days #10 caps 12/12/22 prednisone 20 mg tablet 40 mg (2 x 20 mg) PO DAILY #10 tabs 12/12/22 doxycycline hyclate 100 mg capsule 100 mg PO BID 10 days #20 caps 01/12/23 metronidazole 500 mg tablet 500 mg PO BID 7 days #14 tabs 01/12/23 Allergies Allergy/AdvReac Type Severity Reaction Status Date / Time No Known Allergies Allergy Verified 05/30/22 12:23 Review of Systems Review of Systems: Constitutional : No Weight loss, No Fever, No Chills, No Fatigue, No Malaise ENT/Mouth : No sore throat, No Rhinorrhea Eyes: No Eye Pain, No Swelling, No Redness Cardiovascular : No Chest Pain, No SOB, No Dyspnea on Exertion, No Orthopnea, No Edema, No Palpitations Respiratory : No Cough, No Sputum, No Wheezing Gastrointestinal : No Nausea, No Vomiting, No Diarrhea, No Constipation, No abdominal Pain, No Hematochezia, No Melena Genitourinary : + Dysuria, No Urinary Frequency, No Hematuria, + vaginal discharge. Musculoskeletal : No joint pain, No Myalgias, No Joint Swelling Skin : No Skin Lesions, No rash Neuro : No Weakness, No Numbness, No Dizziness, No Headache Psych : No Anxiety/Panic, No Depression All other systems reviewed and are negative Yes all other systems are reviewed and are negative COUNTS INCLUDE 234 BEDS AT THE [facility] Past Medical History Attestation statement: The following information was validated with the patient. Source: old records reviewed and nursing notes reviewed Medical History No known health problems Physical Exam Vital Signs: Vital Signs: Last Vital Signs Temp 98 F 01/12/23 09:50 Pulse 77 01/12/23 09:50 Resp 16 01/12/23 09:50 BP 152/96 H 01/12/23 09:50 Pulse Ox 98 01/12/23 09:50 O2 Del Method Room Air 01/12/23 09:50 BMI result Body Mass Index 53.2 vss Appearance: Alert.? Oriented X3.? No acute distress.? Head: Normocephalic, atraumatic, no step-offs or deformities Eyes: Pupils equal, round and reactive to light.? ENT: Pharynx normal.? Neck: Normal inspection.? Neck supple.? CVS: Normal heart rate and rhythm.? Pulses normal.? Respiratory: No respiratory distress.? Breath sounds normal.? Abdomen: Soft and nontender.? Negative Rovsing and McBurney's. Skin: Skin warm and dry.? Normal skin color.? Normal skin turgor.? Extremities: No lower extremity edema.? No calf ttp. 5/5 strength to bilateral upper and lower extremities Neuro: Oriented X 3.? No motor deficit.? No sensory deficit. CN 2-12 intact Sensative: patient doesnt want it done will follow up with PCP states no pain will give obgyn info Medical Decision Making Medical Decision Making [facility] Narrative: 1217 27-year-old female presents with pressure with urination, and burning with vaginal discharge in concerns for STDs. PE benign. History and physical exam concerning for possible UTI versus sexually transmitted infection versus cystitis versus PID. Unlikely pyelo, intra-abdominal etiology such as appendicitis, diverticulitis, pancreatitis, obstruction, ovarian torsion, or ectopic . Plan at this time prophylactic treatment. Patient agrees to prophylactic treatment for gonorrhea, chlamydia and trichomonas. 500mg IM ceftriaxone has been given here and scripts for doxycycline 100 mg po BID X 7 days and metronidazole 500 mg po BID X 7 days have been given to the patient. Educated on safe sex practices, full pannel STD testing and speaking to? partners on possible STD. Differential Diagnosis Differential Diagnoses: The differential diagnosis associated with the presentation includes History and physical exam concerning for possible UTI versus sexually transmitted infection versus cystitis versus PID. Unlikely pyelo, intra-abdominal etiology such as appendicitis, diverticulitis, pancreatitis, obstruction, ovarian torsion, or ectopic . Admission/Observation Consideration of admission/observation: Escalation of care including admission/observation considered Unlikely Lab Data [facility] Lab Attestation statement: I reviewed the patient's lab results. Prescription Management I considered prescription management with: Antibiotic Chronic Conditions Patient?s care impacted by: Other (Obesity) Critical Care Time Critical Care Time Critical Care Time: No Discharge Plan Discharge Clinical Impression: Vaginal discharge, Encounter for assessment of STD exposure Patient Disposition: Home, Self-Care Instructions: Vaginal Discharge (ED) Additional Instructions: Take your medications as prescribed. If you were prescribed antibiotics today, it is important that you take your medication to their entirety, do not skip any doses, do not finish them early. Follow-up with your primary care provider this week. Return to the emergency department with new or worsening symptoms. Such as fevers, chills, chest pain, shortness of breath, nausea, vomiting, dizziness, headache, vision changes, lethargy In case of emergency call 911 You were treated here today with ceftriaxone, a medication that treats gonorrhea. I have sent to your pharmacy Metronidazole that covers trichomonas, and Doxycycline which covers for chlamydia. Please be reevaluated by a healthcare provider after completing your antibiotics. Do not stop them early, do not skip any doses. Until you are reevaluated by a health care provider please practice safe sex as disucussed. Please also have a conversation with your sexual partners.? I also advise you to obtain full panel STD testing to test for other STDs including HIV, Hepatitis B & C and syphilis with your PCP or a local clinic. Prescriptions: New doxycycline hyclate 100 mg capsule 100 mg PO BID 10 Days Qty: 20 0RF metronidazole 500 mg tablet 500 mg PO BID 7 Days Qty: 14 0RF No Action prednisone 20 mg tablet 40 mg PO DAILY 4 Days Qty: 8 0RF prednisone 20 mg tablet 40 mg PO DAILY Qty: 8 0RF azithromycin 250 mg tablet See Rx Instructions .ROUTE .COMPLEX Qty: 6 0RF Rx Instructions: For 250 mg dose pack: take 500 mg today (day 1), then 250 mg for 4 days (days 2-5) benzonatate 200 mg capsule 200 mg PO TID PRN (Reason: cough) Qty: 20 0RF cefuroxime axetil 500 mg tablet 500 mg PO BID Qty: 20 0RF prednisone 20 mg tablet 60 mg PO DAILY 4 Days Qty: 12 0RF albuterol sulfate 90 mcg/actuation HFA aerosol inhaler 2 puff inhalation Q4-6H PRN (Reason: shortness of breath or wheezing) Qty: 8.5 0RF doxycycline hyclate 100 mg capsule 100 mg PO BID 7 Days Qty: 14 0RF albuterol sulfate 90 mcg/actuation HFA aerosol inhaler 1 inh inhalation Q6H PRN (Reason: shortness of breath or wheezing) Qty: 6.7 0RF prednisone 20 mg tablet 40 mg PO DAILY Qty: 10 0RF oseltamivir [Tamiflu] 75 mg capsule 75 mg PO BID 5 Days Qty: 10 0RF Referrals: Andrews Cox MD [Emergency Provider] - 2 days Physician,Unknown J [Primary Care Provider] - Stand Alone Forms: Work/School Release
[2023-01-12 13:56] LABS: Appearance Urine Cloudy; Color Urine Yellow; Glucose Urine UA Negative (Negative); Leukocyte Esterase Urine Small (1+) (Negative); Nitrite Urine Negative (Negative); PH 5.5 (5.0-9.0); Specific Gravity - Urine >= 1.030 (1.005-1.025); UMIC TRIGGER UACC YES; Urine Blood Negative (Negative); Urine Ketones Negative (Negative); Urine Protein Negative (Neg-Trace)
[2023-01-12 13:58] LABS: UPreg QC Valid YES; Urine Pregnancy NEGATIVE (NEGATIVE)
[2023-01-12 14:11] LABS: Bacteria Urine 2+ (None Seen); Hyaline Casts Urine 0-2 /LPF (0-2); RBC Urine 0-2 /HPF (0-2); UACC Culture Trigger YES; WBC Urine 0-5 /HPF (0-5)
== END 2023-01-12 14:44 | disposition home or self-care (01) ==
PROVIDERS: Registered Nurse Emergency; Emergency Provider Emergency Medicine
DX: N89.8 Other specified noninflammatory disorders of vagina (principal); R10.2 Pelvic and perineal pain; Z20.2 Contact with and (suspected) exposure to infections with a predominantly sexual mode of transmission
CPT/HCPCS: 0353U; 81001; 81025; 87086; 96372; 99282; 99284; J0696

== ENCOUNTER 2023-04-14 11:57 | Emergency (ER) | payer MEDICAID, SELFPAY ==
[2023-04-14 12:04] VITALS: BP 152/96; PULSE 91; RESP 18; TEMP 36.9; O2SAT 98; BMI 51.7
--- NOTE | 2023-04-14 12:04 | ED.URI ---
HPI - URI/Sore Throat General Chief Complaint: Upper Respiratory Symptoms Stated Complaint: bronchitis ? Time Seen by Provider: 04/14/23 14:16 Source: patient Mode of arrival: ambulatory Limitations: no limitations History of Present Illness HPI Narrative: Patient is a 27-year-old female who presents emergency department for evaluation of a dry nonproductive cough, chest congestion. Symptom onset was 2 weeks ago. No improvement despite OTC cold medications future reports a history of bronchitis and pneumonia in the pain. Her daughter is also ill with a cough and cold-like symptoms at this time. Denies fevers, chills, headache, dizziness, neck pain, neck stiffness, chest pain, shortness of breath, difficulty breathing, cough, sore throat, nausea, vomiting, abdominal pain, numbness or tingling of the extremities, genitourinary symptoms. Related Data Previous Rx's Medication Instructions Recorded prednisone 20 mg tablet 40 mg (2 x 20 mg) PO DAILY 4 days 09/26/20 #8 tabs azithromycin 250 mg tablet See Rx Instructions PO .COMPLEX #6 09/29/21 tabs benzonatate 200 mg capsule 200 mg PO TID PRN cough #20 caps 09/29/21 prednisone 20 mg tablet 40 mg (2 x 20 mg) PO DAILY #8 tabs 09/29/21 cefuroxime axetil 500 mg tablet 500 mg PO BID #20 tabs 04/24/22 albuterol sulfate 90 mcg/actuation 2 puff inhalation Q4-6H PRN 05/30/22 aerosol inhaler shortness of breath or wheezing #8.5 grams doxycycline hyclate 100 mg capsule 100 mg PO BID 7 days #14 caps 05/30/22 prednisone 20 mg tablet 60 mg (3 x 20 mg) PO DAILY 4 days 05/30/22 #12 tabs albuterol sulfate 90 mcg/actuation 1 inh inhalation Q6H PRN shortness 12/12/22 aerosol inhaler of breath or wheezing #6.7 grams oseltamivir 75 mg capsule (Tamiflu) 75 mg PO BID 5 days #10 caps 12/12/22 prednisone 20 mg tablet 40 mg (2 x 20 mg) PO DAILY #10 tabs 12/12/22 doxycycline hyclate 100 mg capsule 100 mg PO BID 10 days #20 caps 01/12/23 metronidazole 500 mg tablet 500 mg PO BID 7 days #14 tabs 01/12/23 fluconazole 150 mg tablet 150 mg PO DAILY #1 tab 01/13/23 (Diflucan) azithromycin 250 mg tablet See Rx Instructions PO .COMPLEX #6 04/14/23 tabs benzonatate 200 mg capsule 200 mg PO TID PRN cough 7 days #20 04/14/23 caps prednisone 20 mg tablet 40 mg (2 x 20 mg) PO DAILY 5 days 04/14/23 #10 tabs Allergies Allergy/AdvReac Type Severity Reaction Status Date / Time No Known Allergies Allergy Verified 05/30/22 12:23 Review of Systems Review of Systems: Yes all other systems are reviewed and are negative [facility] Past Medical History Attestation statement: The following information was validated with the patient. Source: old records reviewed Onset Date is defined in the Problem List Problems that require an onset date and time if occurred within 24 hrs of arrival to the ED Aortic Dissection and Rupture; Neurologic impairment; Cardiopulmonary Arrest; Endotracheal Intubation; Insertion or Replacement of Mechanical Circulatory Assist Device Medical History No known health problems Physical Exam Vital Signs: Vital Signs: Last Vital Signs Temp 98.5 F 04/14/23 12:04 Pulse 91 04/14/23 12:04 Resp 18 04/14/23 12:04 BP 152/96 H 04/14/23 12:04 Pulse Ox 98 04/14/23 12:04 O2 Del Method Room Air 04/14/23 12:04 BMI result Body Mass Index 51.7 Appearance: Alert.?Oriented to person, place and time. No acute distress.?Normal affect. Eyes: Pupils equal, round and reactive to light.? ENT: TM normal bilaterally. Pharynx normal.?? Neck: Normal inspection.? Neck supple.??No cervical adenopathy CVS: Heart sounds normal. Normal heart rate and rhythm.? Pulses normal.?? Respiratory: No respiratory distress.? Lung sounds clear to auscultation bilaterally?? Abdomen: Soft and non-tender. Normoactive bowel sounds. Skin: Skin warm and dry.? Normal skin color.? ? Extremities: No lower extremity edema.? Neuro: Moves all extremities spontaneously. Sensation intact bilaterally. No motor deficits. Ambulates with normal steady gait. Course Course Course Narrative: RME: 27 yo female w/ no significant PMHx presenting to the ED c/o dry cough [id number] w/nasal congestion. Admits to cigarette smoking. +daughter sick as well. denies fever viral testing & CXR ordered Full HPI, ROS and PE to be performed by primary ED provider. Medical Decision Making Medical Decision Making [facility] Narrative: Patient is a 27-year-old female, presenting for evaluation of upper respiratory symptoms. COVID-19 /influenza/RSV testing are negative. Strep a testing negative. Chest x-ray is without evidence of acute cardiopulmonary abnormality. At this time history and physical exam not consistent with ACS/PE/pneumonia. Well-appearing, nontoxic, afebrile, no tachycardia or tachypnea/hypoxia. Symptoms most consistent with bronchitis, likely secondary to recent viral upper respiratory infection. Speaking clear full sentences, ambulatory with steady gait. Will send prescription to pharmacy for Tessalon, prednisone, and azithromycin. Discussed conservative treatment including rest, hydration, Tylenol/ibuprofen as needed for fever and body aches, saline nasal spray, humidifier, [id number] cold medication. Advised to follow-up with primary care provider as needed, discussed reasons to return back to the emergency department. All questions were answered. Patient discharged home in stable condition. Differential Diagnosis Differential Diagnoses: The differential diagnosis associated with the presentation includes ( See narrative above) Admission/Observation Consideration of admission/observation: Escalation of care including admission/observation considered ( see narrative above) Lab Data [facility] Lab Attestation statement: I reviewed the patient's lab results. ( see narrative above) Labs: Lab Results 04/14/23 Range/Units 12:26 Influenza Type A (PCR) NEGATIVE (Negative) Influenza Type B (PCR) NEGATIVE (Negative) RSV RNA Qual (PCR) NEGATIVE (Negative) SARS-CoV-2 RNA (RT-PCR) NEGATIVE (Negative) S. pyogenes GrpA LEON Negative (Negative) Independent Interpretation I performed an independent interpretation of an: Plain X-Ray ( I personally interpreted chest x-ray and agree with radiologist impression.) Radiology Impression Discussion of test interpretation with radiology: I have reviewed the radiologist's reading. Radiologist Impression: XR/XR chest 2V IMPRESSION: No acute cardiopulmonary disease. External Record Review External record reviewed: Outpatient record Prescription Management I considered prescription management with: Pain Medication ( acetaminophen/ibuprofen) and Antibiotic Discharge Plan Discharge Clinical Impression: Bronchitis Patient Disposition: Home, Self-Care Instructions: Acute Bronchitis (ED) Additional Instructions: Be sure to rest, stay well hydrated drinking plenty of fluids, eat small frequent meals. You can take Tylenol 500 mg, 2 tablets (1,000mg) every 4-6 hours as needed for pain, but not to exceed 3 doses daily (3,000mg).? Kyxo-lkn-izatgjc cold medications may be helpful as well for symptoms. Saline nasal spray, humidifier may be helpful for nasal congestion. You may return to the emergency department with any new or worsening symptoms or concerns. Follow-up with your primary care provider as needed. Should remain out of school/ work until symptoms have resolved and have been without a fever for 24 hours without the use of Tylenol or ibuprofen. Prescriptions: New azithromycin 250 mg tablet See Rx Instructions .ROUTE .COMPLEX Qty: 6 0RF Rx Instructions: For 250 mg dose pack: take 500 mg today (day 1), then 250 mg for 4 days (days 2-5) benzonatate 200 mg capsule 200 mg PO TID PRN (Reason: cough) 7 Days Qty: 20 0RF prednisone 20 mg tablet 40 mg PO DAILY 5 Days Qty: 10 0RF No Action prednisone 20 mg tablet 40 mg PO DAILY 4 Days Qty: 8 0RF prednisone 20 mg tablet 40 mg PO DAILY Qty: 8 0RF azithromycin 250 mg tablet See Rx Instructions .ROUTE .COMPLEX Qty: 6 0RF Rx Instructions: For 250 mg dose pack: take 500 mg today (day 1), then 250 mg for 4 days (days 2-5) benzonatate 200 mg capsule 200 mg PO TID PRN (Reason: cough) Qty: 20 0RF cefuroxime axetil 500 mg tablet 500 mg PO BID Qty: 20 0RF prednisone 20 mg tablet 60 mg PO DAILY 4 Days Qty: 12 0RF albuterol sulfate 90 mcg/actuation HFA aerosol inhaler 2 puff inhalation Q4-6H PRN (Reason: shortness of breath or wheezing) Qty: 8.5 0RF doxycycline hyclate 100 mg capsule 100 mg PO BID 7 Days Qty: 14 0RF doxycycline hyclate 100 mg capsule 100 mg PO BID 10 Days Qty: 20 0RF metronidazole 500 mg tablet 500 mg PO BID 7 Days Qty: 14 0RF fluconazole [Diflucan] 150 mg tablet 150 mg PO DAILY Qty: 1 0RF albuterol sulfate 90 mcg/actuation HFA aerosol inhaler 1 inh inhalation Q6H PRN (Reason: shortness of breath or wheezing) Qty: 6.7 0RF prednisone 20 mg tablet 40 mg PO DAILY Qty: 10 0RF oseltamivir [Tamiflu] 75 mg capsule 75 mg PO BID 5 Days Qty: 10 0RF Referrals: Physician,Unknown J [Primary Care Provider] -
== END 2023-04-14 15:06 | disposition home or self-care (01) ==
PROVIDERS: Emergency Provider Student in an Organized Health Care Education/Training Program
DX: J40 Bronchitis, not specified as acute or chronic (principal); Z20.822 Contact with and (suspected) exposure to COVID-19; Z20.828 Contact with and (suspected) exposure to other viral communicable diseases; Z79.899 Other long term (current) drug therapy
CPT/HCPCS: 0241U; 71046; 87651; 99282; 99283

== ENCOUNTER 2023-04-21 11:47 | Outpatient (REF) | payer MEDICAID, SELFPAY ==
[2023-04-21 13:22] LABS: Basophils Absolute Auto 0.1 X10*3/uL (0.0-0.2); Basophils Percent Auto 0.5 % (0-2); Eosinophils Absolute Auto 0.2 X10*3/uL (0.0-0.4); Eosinophils Percent Auto 1.4 % (0-4); Hematocrit 37.6 % (37.0-47.0); Hemoglobin 11.4 g/dl (12.0-16.0); Imm Gran Abs Auto 0.08 X10*3/uL (0.00-0.03); Imm Gran Pct Auto 0.5 % (0.0-0.4); Lymphocytes Percent Auto 42.9 % (20-40); MANUAL DIFF FLAG SCAN; Mean Corpuscular HGB Conc 30.3 g/dl (31.0-35.0); Mean Corpuscular Hemoglobin 26.1 pg (27.0-33.0); Monocytes Percent Auto 6.7 % (2-11); Platelet Count 555 X10*3/uL (160-400); Red Blood Count 4.37 X10*6/uL (4.20-5.50); Red Cell Distribution Width 15.2 % (11.0-16.0); SCAN SMEAR FLAG 1; White Blood Count 14.7 X10*3/uL (4.8-10.8)
[2023-04-21 13:23] LABS: Lymphocytes Absolute Auto 6.3 X10*3/uL (1.2-4.9)
[2023-04-21 13:50] LABS: Alanine Aminotransferase 62 U/L (0-31); Albumin Level 3.9 g/dL (3.5-5.0); Alkaline Phosphatase 112 U/L (39-117); Anion Gap 9 (12-20); Aspartate Amino Transferase 24 U/L (5-31); Bilirubin Total 0.4 mg/dL (0.0-1.0); Blood Urea Nitrogen 12 mg/dL (9-16); Calcium 9.2 mg/dL (8.4-10.2); Carbon Dioxide 26 mmol/L (22-29); Chloride 109 mmol/L (96-108); Cholesterol 133 mg/dL (<200); Estimated Glomerular Filt Rate > 60; Glucose Random 119 mg/dL (60-115); HDL Cholesterol 32 mg/dL (>40); LDL Cholesterol Calculated 80 mg/dL (<100); Potassium 4.1 mmol/L (3.3-5.1); Sodium 140 mmol/L (135-145); Total Protein 7.5 g/dL (6.5-8.0); Triglycerides 106 mg/dL (<150)
[2023-04-21 13:57] LABS: Appearance Urine Turbid; Color Urine Yellow; Glucose Urine UA Negative (Negative); Leukocyte Esterase Urine Negative (Negative); Nitrite Urine Negative (Negative); PH 5.5 (5.0-9.0); Specific Gravity - Urine >= 1.030 (1.005-1.025); Urine Blood Negative (Negative); Urine Ketones Trace mg/dL (Negative); Urine Protein Trace mg/dL (Neg-Trace)
[2023-04-21 14:15] LABS: Estimated Average Glucose 123 mg/dL; Hemoglobin A1c % 5.9 % (<6.0)
[2023-04-21 14:19] LABS: Bacteria Urine Trace (None Seen); Calcium Oxalate Crystals Urine Present; RBC Urine 0-2 /HPF (0-2); WBC Urine 0-5 /HPF (0-5)
[2023-04-21 14:40] LABS: SLIDE REVIEW VERIFIED
[2023-04-22 14:55] LABS: BV Int Neg Control Negative (Negative); BV Int Pos Control Positive (Positive)
[2023-04-23 04:57] LABS: HBc Num1 0.09 S/CO (0.00-0.79); HBsAGNum1 0.23 S/CO (0.00-0.99); HIV AB/AG Nonreactive (Nonreactive); HIV Num 1 0.04 S/CO (0.00-0.99); Hepatitis A Antibody IgM 0.16 Index (0-0.79); Hepatitis B Core Antibody Nonreactive (Nonreactive); Hepatitis B Surface Antigen Negative (Negative); ~HepC Num1 0.19 S/CO (0.00-0.79); ~Hepatitis A Antibody IgM Nonreactive (Nonreactive); ~Hepatitis B Surface Antibody NONREACTIVE (Nonreactive); ~Hepatitis C Antibody Nonreactive (Nonreactive)
[2023-04-24 10:14] LABS: RPR Rapid Plasma Reagin NON-REACTIVE (NON-REACTIVE)
== END 2023-04-21 11:48 | disposition home or self-care (01) ==
LOC: HO.HHCL 11:47
PROVIDERS: Visit Provider Nurse Practitioner
DX: E66.01 Morbid (severe) obesity due to excess calories (principal); D64.9 Anemia, unspecified; R30.0 Dysuria; Z11.3 Encounter for screening for infections with a predominantly sexual mode of transmission; Z68.43 Body mass index [BMI] 50.0-59.9, adult
CPT/HCPCS: 36415; 80053; 80061; 81001; 83036; 85025; 86592; 86704; 86706; 86709; 86803; 87340; 87389; 87480; 87510; 87660

== ENCOUNTER 2023-06-13 14:26 | Emergency (ER) | payer MEDICAID, SELFPAY ==
[2023-06-13 14:27] VITALS: BP 157/90; PULSE 116; RESP 20; TEMP 36.1; O2SAT 97; BMI 53.2
--- NOTE | 2023-06-13 14:30 | ED_ITS ---
HPI - General Adult General Chief complaint: Upper Respiratory Symptoms Stated complaint: Cough Time Seen by Provider: 06/13/23 14:59 Source: patient Mode of arrival: ambulatory Limitations: no limitations History of Present Illness HPI narrative: Patient is a 28-year-old female presenting to the emergency department with complaint of cough productive of green/yellow sputum since Monday. States her daughter is sick with similar symptoms. Reports history of childhood asthma. Denies fevers. Also stating that she was recently treated for a vaginal yeast infection but has since had 2 episodes of thorpe, mucousy discharge over a week ago, and is requesting STI testing. MD complaint: cough Onset (ago): day(s) Treatments prior to arrival: none Related Data Previous Rx's Medication Instructions Recorded prednisone 20 mg tablet 40 mg (2 x 20 mg) PO DAILY 4 days 09/26/20 #8 tabs azithromycin 250 mg tablet See Rx Instructions PO .COMPLEX #6 09/29/21 tabs benzonatate 200 mg capsule 200 mg PO TID PRN cough #20 caps 09/29/21 prednisone 20 mg tablet 40 mg (2 x 20 mg) PO DAILY #8 tabs 09/29/21 cefuroxime axetil 500 mg tablet 500 mg PO BID #20 tabs 04/24/22 albuterol sulfate 90 mcg/actuation 2 puff inhalation Q4-6H PRN 05/30/22 aerosol inhaler shortness of breath or wheezing #8.5 grams doxycycline hyclate 100 mg capsule 100 mg PO BID 7 days #14 caps 05/30/22 prednisone 20 mg tablet 60 mg (3 x 20 mg) PO DAILY 4 days 05/30/22 #12 tabs albuterol sulfate 90 mcg/actuation 1 inh inhalation Q6H PRN shortness 12/12/22 aerosol inhaler of breath or wheezing #6.7 grams oseltamivir 75 mg capsule (Tamiflu) 75 mg PO BID 5 days #10 caps 12/12/22 prednisone 20 mg tablet 40 mg (2 x 20 mg) PO DAILY #10 tabs 12/12/22 doxycycline hyclate 100 mg capsule 100 mg PO BID 10 days #20 caps 01/12/23 metronidazole 500 mg tablet 500 mg PO BID 7 days #14 tabs 01/12/23 fluconazole 150 mg tablet 150 mg PO DAILY #1 tab 01/13/23 (Diflucan) azithromycin 250 mg tablet See Rx Instructions PO .COMPLEX #6 04/14/23 tabs benzonatate 200 mg capsule 200 mg PO TID PRN cough 7 days #20 04/14/23 caps prednisone 20 mg tablet 40 mg (2 x 20 mg) PO DAILY 5 days 04/14/23 #10 tabs Allergies Allergy/AdvReac Type Severity Reaction Status Date / Time No Known Allergies Allergy Verified 05/30/22 12:23 Review of Systems Review of Systems: As per HPI. Yes all other systems are reviewed and are negative Constitutional: Constitutional: Reports as per [facility] Past Medical History Medical History No known health problems Social History Social History Advance Directives: No Physical Exam ED Vital Signs: Vital Signs - 24 hr 06/13/23 14:27 Temperature 97 F Pulse Rate 116 H Respiratory Rate 20 Blood Pressure 157/90 H Pulse Oximetry 97 Oxygen Delivery Method Room Air BMI result Body Mass Index 53.2 Vital signs have been reviewed and appear to be correct. Blood pressure elevat ed. Heart rate mildly tachycardic. Respiratory rate normal. Temperature normal. Oxygen saturation normal. Const General: cooperative, healthy appearing and no acute distress Orientation/consciousness: oriented to person, oriented to place, oriented to time and patient oriented x3 Limitations: no limitations HENMT Head: Yes normocephalic and Yes atraumatic Ears: external ears normal, TM's normal bilaterally and EAC's normal General nose exam: Normal external nose present and Normal nasal mucous membranes and turbinates present Face and sinus: Yes face symmetric Mouth: oropharynx normal and moist mucous membranes Throat: Yes posterior oropharynx normal, Yes tonsils normal and Yes uvula midline Eyes Pupils: Equal, round and reactive pupils present Neck Neck: Yes normal visual inspection and Yes supple Lymphatic: no lymphadenopathy noted Resp Effort & Inspection: normal respiratory effort and able to speak in complete sentences Auscultation: clear to auscultation bilaterally, no crackles, no rhonchi and no wheezes Cardio Rate: regular rate Rhythm: regular rhythm Heart sounds: S1 normal heart sound present and S2 normal heart sound present GI Palpation (GI): Soft to palpation and nontender Auscultation: normoactive bowel sounds General: Yes no CVA tenderness Back/Spine/Pelvis Back: no CVA tenderness Skin General skin exam: elasticity normal and turgor normal Neuro General: oriented to person, oriented to place, oriented to time, patient oriented x3, moves all extremities, no focal motor deficits and CN's II-XI intact bilaterally Cranial nerves: Yes Equal, round and reactive pupils present Cognition (Neuro): normal cognition Extrem General: Yes full ROM, Yes no pedal edema and Yes no calf tenderness Psych Mental Status: mental status grossly normal Affect: normal affect Thought process: Normal thought process present Course Course Course Narrative: RME- 28 year old female presents for evaluation of a cough since Monday. Plan for viral swabs Medical Decision Making Medical Decision Making [facility] Narrative: Patient is a 28-year-old female presenting to the emergency department with complaint of cough productive of green/yellow sputum since Monday. On exam patient is awake, A+Ox3, mildly tachycardic, BP elevated, VS otherwise WNL, afebrile, normal neurological exam without focal deficits, physical exam findings as above. Given reported symptoms and physical exam findings, initial differential includes viral illness, covid, flu, rsv, BV, vulvovaginal candidiasis. Swabs for COVID, flu, RSV all negative and patient updated on results. BV swab pending, will contact patient with any positive results. Discussed with patient that symptoms are likely due to viral upper respiratory infection and should slowly resolve with time. Advised patient to ensure adequate fluid intake, adequate rest, can take Tylenol or ibuprofen as needed for fever or discomfort. Instructed patient follow-up with primary care provider. Return precautions discussed at bedside. Patient verbalized understanding of and agreement with plan. Differential Diagnosis Differential Diagnoses: The differential diagnosis associated with the presentation includes As per [facility]. Lab Data [facility] Lab Attestation statement: I reviewed the patient's lab results. As per [facility]. Labs: Lab Results 06/13/23 Range/Units 14:46 Influenza Type A (PCR) NEGATIVE (Negative) Influenza Type B (PCR) NEGATIVE (Negative) RSV RNA Qual (PCR) NEGATIVE (Negative) SARS-CoV-2 RNA (RT-PCR) NEGATIVE (Negative) External Record Review External record reviewed: Inpatient record, Office record and Outpatient record Discharge Plan Discharge Clinical Impression: Upper respiratory infection Patient Disposition: Home, Self-Care Instructions: Upper Respiratory Infection (DC), Viral Syndrome (ED) Additional Instructions: You were evaluated in the emergency department today for cough. Your cough is most likely due to a viral illness which will improve on its own with rest and fluids. You can take [id number] medications such as dextromethorphan to help manage your symptoms. Your vaginal swabs are pending, you will be contacted with any positive results. Please schedule an appointment for follow- up with your primary care physician within 2 days. Return to the emergency department if you experience worsening cough, fever 100.4? F or greater, recurrent vomiting, chest pain, shortness of breath, or any other concerning symptoms. Prescriptions: No Action prednisone 20 mg tablet 40 mg PO DAILY 4 Days Qty: 8 0RF prednisone 20 mg tablet 40 mg PO DAILY Qty: 8 0RF azithromycin 250 mg tablet See Rx Instructions .ROUTE .COMPLEX Qty: 6 0RF Rx Instructions: For 250 mg dose pack: take 500 mg today (day 1), then 250 mg for 4 days (days 2-5) benzonatate 200 mg capsule 200 mg PO TID PRN (Reason: cough) Qty: 20 0RF cefuroxime axetil 500 mg tablet 500 mg PO BID Qty: 20 0RF prednisone 20 mg tablet 60 mg PO DAILY 4 Days Qty: 12 0RF albuterol sulfate 90 mcg/actuation HFA aerosol inhaler 2 puff inhalation Q4-6H PRN (Reason: shortness of breath or wheezing) Qty: 8.5 0RF doxycycline hyclate 100 mg capsule 100 mg PO BID 7 Days Qty: 14 0RF doxycycline hyclate 100 mg capsule 100 mg PO BID 10 Days Qty: 20 0RF metronidazole 500 mg tablet 500 mg PO BID 7 Days Qty: 14 0RF fluconazole [Diflucan] 150 mg tablet 150 mg PO DAILY Qty: 1 0RF azithromycin 250 mg tablet See Rx Instructions .ROUTE .COMPLEX Qty: 6 0RF Rx Instructions: For 250 mg dose pack: take 500 mg today (day 1), then 250 mg for 4 days (days 2-5) benzonatate 200 mg capsule 200 mg PO TID PRN (Reason: cough) 7 Days Qty: 20 0RF prednisone 20 mg tablet 40 mg PO DAILY 5 Days Qty: 10 0RF albuterol sulfate 90 mcg/actuation HFA aerosol inhaler 1 inh inhalation Q6H PRN (Reason: shortness of breath or wheezing) Qty: 6.7 0RF prednisone 20 mg tablet 40 mg PO DAILY Qty: 10 0RF oseltamivir [Tamiflu] 75 mg capsule 75 mg PO BID 5 Days Qty: 10 0RF
[2023-06-13 15:38] LABS: Influenza A PCR NEGATIVE (Negative); Influenza B PCR NEGATIVE (Negative); Resp Syncy Virus RNA Qual PCR NEGATIVE (Negative); SARS COV2 PCR INHOUSE NEGATIVE (Negative)
[2023-06-13 16:32] LABS: CT PCR NOT DETECTED (Not Detect.); NG PCR NOT DETECTED (Not Detect.)
[2023-06-14 14:49] LABS: BV Int Neg Control Negative (Negative); BV Int Pos Control Positive (Positive)
== END 2023-06-13 16:49 | disposition home or self-care (01) ==
PROVIDERS: Physician Assistant; Physician Assistant Medical; Registered Nurse Emergency; Emergency Provider Student in an Organized Health Care Education/Training Program
DX: J06.9 Acute upper respiratory infection, unspecified (principal); R05.9 Cough, unspecified; N89.8 Other specified noninflammatory disorders of vagina; Z11.52 Encounter for screening for COVID-19; Z20.822 Contact with and (suspected) exposure to COVID-19; Z20.2 Contact with and (suspected) exposure to infections with a predominantly sexual mode of transmission
CPT/HCPCS: 0241U; 0353U; 87480; 87510; 87660; 99282; 99283

== ENCOUNTER 2023-12-04 10:56 | Outpatient (REF) | payer MEDICAID, SELFPAY ==
[2023-12-04 13:10] LABS: MANUAL DIFF FLAG NO
[2023-12-04 13:22] LABS: Basophils Absolute Auto 0.1 X10*3/uL (0.0-0.2); Basophils Percent Auto 0.8 % (0-2); Eosinophils Absolute Auto 0.2 X10*3/uL (0.0-0.4); Eosinophils Percent Auto 1.4 % (0-4); Hematocrit 36.1 % (37.0-47.0); Hemoglobin 11.2 g/dl (12.0-16.0); Imm Gran Abs Auto 0.05 X10*3/uL (0.00-0.03); Imm Gran Pct Auto 0.4 % (0.0-0.4); Immature Retic Fraction 24.3 % (3.0-15.9); Lymphocytes Absolute Auto 4.2 X10*3/uL (1.2-4.9); Lymphocytes Percent Auto 34.8 % (20-40); Mean Corpuscular Hemoglobin 27.1 pg (27.0-33.0); Mean Corpuscular Volume 87.2 fL (80.0-98.0); Mean Platelet Volume 10.3 fL (9.4-12.3); Monocytes Absolute Auto 0.9 X10*3/uL (0.1-1.2); Monocytes Percent Auto 7.3 % (2-11); Neutrophils Absolute Auto 6.6 x10*3/uL (2.0-8.3); Neutrophils Percent Auto 55.3 % (45-73); Platelet Count 476 X10*3/uL (160-400); Red Blood Count 4.14 X10*6/uL (4.20-5.50); Red Cell Distribution Width 15.7 % (11.0-16.0); Retic HGB Equivalent 28.7 pg (30.0-35.0); Reticulocyte Percent 2.3 % (0.5-1.8); Reticulocytes Absolute 0.096 X10*6/uL (0.026-0.095)
[2023-12-04 13:31] LABS: Estimated Average Glucose 123 mg/dL; Hemoglobin A1c % 5.9 % (<6.0)
[2023-12-04 13:51] LABS: Alanine Aminotransferase 27 U/L (0-31); Albumin Level 3.7 g/dL (3.5-5.0); Alkaline Phosphatase 105 U/L (39-117); Anion Gap 9 (12-20); Aspartate Amino Transferase 22 U/L (5-31); Bilirubin Total 0.3 mg/dL (0.0-1.0); Blood Urea Nitrogen 10 mg/dL (9-16); Carbon Dioxide 25 mmol/L (22-29); Chloride 109 mmol/L (96-108); Cholesterol 126 mg/dL (<200); Estimated Glomerular Filt Rate > 60; Glucose Random 101 mg/dL (60-115); HDL Cholesterol 31 mg/dL (>40); Iron 30 mcg/dL (30-160); LDL Cholesterol Calculated 75 mg/dL (<100); Percent Iron Saturation 11 % (15-50); Potassium 4.4 mmol/L (3.3-5.1); Sodium 139 mmol/L (135-145); Total Iron Binding Capacity 281 mcg/dL (228-428); Total Protein 7.2 g/dL (6.5-8.0); Triglycerides 100 mg/dL (<150); Unsaturated Iron Binding 251 ug/dL
[2023-12-04 13:55] LABS: TSH reflex Free T4 1.52 uIU/mL (0.32-4.0); Vitamin D 25-OH Total 31.7 ng/mL (>30)
[2023-12-04 14:15] LABS: Folate 6.8 ng/mL (> or = 4.0); Vitamin B12 297 pg/mL (200-900)
[2023-12-04 16:01] LABS: Bacterial Vaginosis PCR NEGATIVE (Negative); Candida Group PCR DETECTED (Not Detect); Candida glab krusei PCR NOT DETECTED (Not Detect); Trichomonas vaginalis PCR NOT DETECTED (Not Detect)
[2023-12-04 16:34] LABS: CT PCR NOT DETECTED (Not Detect.); NG PCR NOT DETECTED (Not Detect.)
[2023-12-06 13:17] LABS: Hematocrit 36.5 % (35.0-45.0); Hemoglobin 11.3 g/dL (11.7-15.5); MCH 26.8 pg (27.0-33.0); MCV 86.7 fL (80.0-100.0); RBC 4.21 Million/uL (3.80-5.10); RDW 14.4 % (11.0-15.0)
== END 2023-12-04 10:57 | disposition home or self-care (01) ==
LOC: HO.HHCL 10:56
PROVIDERS: Visit Provider Nurse Practitioner
DX: N89.8 Other specified noninflammatory disorders of vagina (principal); D50.9 Iron deficiency anemia, unspecified; E66.01 Morbid (severe) obesity due to excess calories
CPT/HCPCS: 0352U; 36415; 80053; 80061; 82306; 82607; 82746; 83020; 83036; 83540; 84443; 85014; 85018; 85025; 85041; 85045; 87491; 87591

== ENCOUNTER 2024-07-25 15:58 | Outpatient (REF) | payer MEDICAID, SELFPAY ==
--- NOTE | ~2024-07-25 | XR_ITS ---
EXAMINATION: XR CHEST CLINICAL INFORMATION: worsening cough now with fever after 7 days COMPARISON: Chest x-ray 04/14/2023 TECHNIQUE: 2 views of the chest were obtained. FINDINGS: No significant abnormality is noted involving the heart, lungs, mediastinum, bony thorax or soft tissues. XR/XR chest 2V IMPRESSION: Unremarkable chest examination. Electronically signed by: Juan Qureshi MD 07/25/2024 04:42 PM EDT
--- OUTSIDE RECORDS SUMMARY | 2024-07-25 18:15 | XMS_ITS | Clinical Summary ---
Author Organization [employer] Address [address] [facility] [address] [place] [address] Care Team Providers Care Inside Sales Recruiter Name Role Phone Jeannette Quiroga NP Primary Care Provider [phone] Allergies No known active allergies Medications cetirizine (ZyrTEC) 10 MG tablet Take 10 mg by mouth in the morning. Active buPROPion XL (Wellbutrin XL) 300 MG 24 hr tablet TAKE 1 TABLET BY MOUTH EVERY DAY IN THE MORNING 2 Active ibuprofen 600 MG tabletIndication s:Excessive and frequent menstruation Take 1 tablet (600 mg) by mouth 3 times daily. 180 tablet 3 3 Active ARIPiprazole (Abilify) 5 MG tablet Take 5 mg by mouth at bedtime. 3 Active Ventolin HFA 108 (90 Base) MCG/ACT inhaler INHALE 2 PUFFS BY MOUTH EVERY 4 TO 6 HOURS NEEDED FOR WHEEZE/SHORTNES S OF BREATH 3 Active metroNIDAZOLE (Metrogel) 0.75 % vaginal gelIndications:B V (bacterial vaginosis) Insert 1 application into the vagina 2 (two) times a week. 70 g 3 3 Active ARIPiprazole (Abilify) 2 MG tablet TAKE 1 TABLET BY MOUTH AT BEDTIME WITH 5MG TAB FOR TOTAL DOSE OF 7 MG EVERYDAY AT BEDTIME 4 Active ferrous sulfate (FerrouSul) 325 (65 Fe) MG tabletIndication s:Anemia, unspecified type Take 1 tablet every other day on am empty stomach with vitamin C 30 tablet 2 4 Active ascorbic acid (Vitamin C) 500 MG tabletIndication s:Anemia, unspecified type Take 1 tab every other day with iron 30 tablet 3 4 Active Blood Pressure kitIndications:E levated BP without diagnosis of hypertension Check BP once daily in the morning after urinating and sitting down relaxed for 5 mins 1 kit 4 Active fluticasone (Flonase) 50 MCG/ACT nasal spray SPRAY 2 SPRAYS INTO EACH NOSTRIL IN THE MORNING SHAKE GENTLY/PRIME BEFORE 1ST USE&CLEAN TIP/REPLACE CAP 48 mL 4 Active omeprazole (PriLOSEC) [address] capsule Take 20 mg by mouth Once per day. 4 Active fluconazole (Diflucan) 150 MG tablet Take 1 tablet by mouth. May repeat in 3 days if symptoms still present 2 tablet 4 Active azithromycin (Zithromax) 250 MG tabletIndication s:Cough productive of yellow sputum Take 2 tablets (500 mg) by mouth Once per day for 1 day, THEN 1 tablet (250 mg) Once per day for 4 days. 6 tablet 5 07/30/19 25 Active Active Problems Problem Noted Date Diagnosed Date Cough productive of yellow sputum 07/25/2024 Assessment & Plan (07/25/2024 3:51 PM EDT): COVID, Flu and Strep negative. No evidence of respiratory distress. Reports cough x10 days, worsening this morning with fever and green/yellow sputum. No evidence of dehydration. -Ordered CXR -Prescribed azithromycin (Zithromax) 250 MG, empirically. -Supportive care advised. -Isolation recommendations discussed. Routine adult health maintenance 07/27/2023 Assessment & Plan (12/04/2023 11:46 AM EDT): -age appropriate screening and immunizations up to date (STI screening) -elevated cardiovascular risk given BP reading and body habitus -mental health screening negative: Patient Health Questionnaire-9 Score: 5 (12/04/2023 10:37 AM) Patient Health Questionnaire-2 Score: 3 (12/04/2023 10:37 AM) XAVIER-7 Total Score: 4 (12/04/2023 10:37 AM) -healthy social behaviors encouraged -anticipatory guidance reviewed: diet, exercise -Optometry: been a while. Feels like eye sight is bad -Dental: established with dental home [facility]. Last seen couple of months ago -Outstanding IZ: hepatitis B 2nd dose received today -will schedule for pap testing Assessment & Plan (07/27/2023 3:40 PM EDT): -age appropriate screening and immunizations up to date (STI screening) -low cardiovascular risk -mental health screening: PhQ9 score 12, XAVIER-7 score 2. Patient received psychiatric and therapy services at [facility] -healthy social behaviors encouraged -patient decline contraception counseling today -will schedule patient for pap test -will offer hepatitis B vaccine pending lab results -flu vaccines received today Routine screening for STI (sexually transmitted infection) 07/27/2023 Assessment & Plan (07/27/2023 3:04 PM EDT): -patient reports recent unprotected sexual activity -labs ordered. Will treat accordingly Dysuria 07/27/2023 Assessment & Plan (07/25/2024 3:52 PM EDT): Reports dysuria and vaginal itching. -sent UA and culture. -vaginal swab obtained to test for BV, yeast, and STI -will treat accordingly pending test results Assessment & Plan (07/27/2023 2:25 PM EDT): -POCT urinalysis negative for UTI, will send sample to lab -POCT HCG negative -vaginal swab obtained to test for BV, yeast, and STI -advised increased water intake as spec grav suggestive of dehydration -proper female hygiene reviewed -will treat accordingly pending test results Elevated BP without diagnosis of hypertension Assessment & Plan (12/04/2023 11:46 AM EDT): -BP elevated with initial and recheck. -patient has BP kit at home and advised daily home monitoring -patient has transportation limitations therefore, plan to re-evaluate at her pap appointment -if persistently elevated, will start hydrochlorothiazide -ED precautions reviewed Assessment & Plan (07/27/2023 2:59 PM EDT): -BP kit ordered and log provided to patient -advised daily BP monitoring -will schedule patient for nurse visit in 1 week -will start hydrochlorothiazide 12.5 mg if home BP readings and nurse visit reading above 130/80 mmHg -low salt diet encouraged -at least 30 mins of walking daily advised -follow-up 1 month Encounter for screening invo lving social determinants of health (SDGA) 07/27/2023 Assessment & Plan (07/27/2023 3:04 PM EDT): -[facility] rep in to speak with patient and provided her with housing resources including section 8 voucher and transportation assistance BV (bacterial vaginosis) 10/26/2022 Overview (10/26/2022): Frequent BV infections Plan: Prophylactic BV treament Assessment & Plan (10/26/2022 6:14 PM EDT): Pt has not started treatment yet Has gel and 5 applicators at home. Reviewed with pt apply twice a week. Educated to continue x 3 months Pt will start using as directed F/u PRN Sore throat 10/21/2022 Assessment & Plan (10/21/2022 4:32 PM EDT): Possible mononucleosis Rest drink plenty of fluids Abdominal pain 10/21/2022 Unprotected sexual intercourse 10/21/2022 Missed period 10/21/2022 Tonsillar hypertrophy 03/14/2022 Severe obesity (BMI >= 40) 02/24/2022 Assessment & Plan (12/04/2023 11:37 AM EDT): -following with weight management program at [facility] -Healthy diet and exercise teaching completed: Eat a variety of fruit and vegetables, whole grains such as whole-wheat flour, bulgur (cracked wheat), oatmeal, and brown rice. Intake protein from beans, nuts, fish, and lean meats. Eat low-fat or fat- free dairy products. Limit highly processed foods such as hot dogs, sandwich meat, etc. Engage in minimum of 150 min of moderate intensity exercise weekly -lab ordered to evaluate for secondary metabolic effects Assessment & Plan (07/27/2023 3:25 PM EDT): -healthy diet reviewed. Patient encouraged to seek out healthy food choices as available to her. -encouraged to discontinue consumption of soda and juices -daily exercise advised regardless of how little. Patient encouraged to go out for walks and engage in more physical activities with her 3 y.o -referral to weight management placed Nicotine use 02/24/2022 Anemia 05/01/2018 Assessment & Plan (12/04/2023 11:35 AM EDT): -normocytic anemia and lymphocytosis noted on labs completed 04/22/2023 -repeat testing ordered today -will consider referral to hematology for further investigation with persistently abnormal levels in the absence of physical symptoms -patient will be notified of results via [employer]t as preferred Assessment & Plan (07/27/2023 3:06 PM EDT): -patient reports history of anemia -iron supplement refilled -CBC ordered today Prediabetes 05/01/2018 Chronic low back pain 03/29/2018 Excessive and frequent menstruation 03/29/2018 Gastroesophageal reflux disease 03/29/2018 Genital herpes simplex 03/29/2018 Encounters Date Type Department Care Team Description 07/25/2024 3:20 PM EDT Office Visit [facility] [address] [place] [phone] Ashanti Simmons MD Cough productive of yellow sputum (Primary Dx); Dysuria 07/25/2024 Travel 06/21/2024 Population Health Risk Score [facility] ([facility] Department [address] [place] [phone] Provider, Population Health Generic from Last 3 Months Immunizations Name Administration Dates Next Due DTaP 10/02/1996,04/23/1996 Hep B, adult 12/04/2023,04/23/1996 Hib (PRP-T) 10/02/1996,04/23/1996 IPV 10/02/1996,04/23/1996 Influenza injectable quadrivalent preservative f ree 04/21/2023,03/29/2018 MMR 10/02/1996 Tdap 06/07/2019 Family History Medical History Relation Name Comments No Known Problems Father No Known Problems Maternal Grandfather GI problems Maternal Grandmother No Known Problems Mother No Known Problems Paternal Grandfather No Known Problems Paternal Grandmother Relation Name Status Comments Father Maternal Grandfather Maternal Grandmother Mother Paternal Grandfather Paternal Grandmother Social History Tobacco Use Types Packs/Day Years Used Date Smoking Tobacco: Former Cigarettes 0.3 10 2 012 - 2021 Passive Smoke Exposure: Never Smokeless Tobacco: Never Comments:Smokes 1 box cig pe r week Alcohol Use Standard Drinks/Week Comments Yes 2 (1 standard drink = 0.6 oz pur e alcohol) Socially Alcohol Answer Date Recorded How often do you have a drink containing alcohol ? 1 12/04/2023 How many drinks containing a lcohol do you have on a typical day when you are drinking? 0 12/04/2023 How often do you have six or more drinks on one occasion? 0 12/04/2023 Depression Answer Date Recorded Patient Health Questionnaire-9 Score 5 12/04/2023 Patient Health Questionnaire-9 Score 5 12/04/2023 Last PHQ-9: Questionnaire Data Not on file 0 12/04/2023 Housing Stability Answer Date Recorded What is your housing situation today? I have adelajo long 02/13/[address] you li ve. Do you have problems with any of the following? None of the above 02/13/2023 Food Insecurity Answer Date Recorded Within the past 12 months, y ou worried that your food would run out before you got money to buy more: Never True 02/13/2023 Within the past 12 months,th e food you bought just didn't last and you didn't have enough money to get more: Never True 09/2022 Transportation Answer Date Recorded In the past 12 months, has l ack of transportation kept you from medical appts, meetings, work or from getting things needed for daily living? No 02/13/2023 Utilities Answer Date Recorded In the past 12 months, has t he electric, gas, oil or water company threatened to shut off services in your home? No 02/13/2023 Depression Answer Date Recorded Patient Health Questionnaire-2 Score 3 12/04/2023 Internet Access Answer Date Recorded Internet Access Q1 Yes 12/08/2023 Internet Access Q2 Not on file 12/08/2023 Comments Unknown Sex and Gender Information Value Date Recorded Sex Assigned at Female 02/07/2022 10:19 AM EDT Legal Sex Female 10:19 AM EDT Gender Identity Female 02/07/2022 10:19 AM EDT Sexual Orientation Choose not to disclose 2021 10:19 AM EDT Last Filed Vital Signs Vital Sign Reading Time Taken Comments Blood Pressure 129/87 07/25/2024 3:30 PM EDT Pulse 108 07/25/2024 3:30 PM EDT Temperature 36.8 ??C (98.3 ??F) 07/25/2024 3:30 PM ED T Respiratory Rate 18 07/25/2024 3:30 PM EDT Oxygen Saturation 96% 07/25/2024 3:30 PM EDT Inhaled Oxygen Concentration - - Weight 166 kg (366 lb) 07/25/2024 3:30 PM EDT Height 175.3 cm (5' 9 ) 12/04/2023 9:54 AM EDT Body Mass Index 54.05 12/04/2023 9:54 AM EDT Plan of Treatment Health Maintenance Due Date Last Done Comments IPV Vaccines (3 of 3 - 4-dose series) 1999 10/02/1996, 04/23/1996 Family Planning (PISQ) 06/12/2010 Pap Smear 02/27/2022 02/27/2019, 04/12/2018 COVID-19 Vaccine ( season) 2023 Influenza Vaccine (#1) 2023 04/21/2023, 2017 Hepatitis B Vaccines (3 of 3 - 3-dose series) 01/29/2024 12/04/2023, 04/23/1996 Alcohol/Substance Use Screening 12/03/2024 12/04/2023 Depression Screening 12/03/2024 12/04/2023, 12/04/19 Diabetes: Hemoglobin A1C 12/03/2024 024, 04/21/2023, 09/19/2022, Additional history exists SDOH Screening 12/03/2024 12/04/2023 Tobacco Screening 12/03/2024 12/04/2023 Lipid Panel 12/03/2028 12/04/2023, 04/21/2023 DTaP/Tdap/Td Vaccines (4 - Td or Tdap) 06/07/2029 06/07/2019, 10/02/1996, 04/23/1996 Zoster Vaccines (1 of 2) 06/12/2045 RSV Patients and Patients Aged 60 years or older (1 - 1-dose 75+ series) 06/12/2070 HIB Vaccines Completed 10/02/1996, 04/23/1996 HIV Screening Completed 04/21/2023, 03/11/2022 Hepatitis C Screening Completed 04/21/2023, 022 HPV Vaccines Aged Out No longer eligi ble based on patient's age to complete this topic Hepatitis A Vaccines Aged Out No long er eligible based on patient's age to complete this topic Meningococcal Vaccine Aged Out No mio malvin eligible based on patient's age to complete this topic Pneumococcal Vaccine: Pediatrics (0 to 5 Years) and At-Risk Patients (6 to 49) Years) Aged Out No longer eligible based on patient's age to complete this topic RSV under 20 months Aged Out No longe r eligible based on patient's age to complete this topic Rotavirus Vaccines Aged Out No longer eligible based on patient's age to complete this topic Procedures Procedure Name Priority Date/Time Associated Diagnosis Comments XR CHEST 2 VIEWS Routine 07/25/2024 3:58 PM EDT Cough productive of yellow sputum POCT INFLUENZA B (ID NOW RAPID MOLECULAR) Routine 07/25/2024 3:44 PM EDT Cough productive of yellow sputum POCT INFLUENZA A (ID NOW RAPID MOLECULAR) Routine 07/25/2024 3:43 PM EDT Cough productive of yellow sputum POCT RAPID COVID ANTIGEN Routine 07/25/2024 3:34 PM EDT Cough productive of yellow sputum HEMOGLOBIN A1C Routine 12/04/2023 11:15 AM EDT Severe obesity (BMI >= 40) (CMS/HCC) LIPID PANEL, STANDARD Routine 12/04/2023 11:15 AM EDT Severe obesity (BMI >= 40) (CMS/HCC) HEPATITIS PANEL, GENERAL Routine 04/21/2023 11:48 AM EST Routine screening for STI (sexually transmitted infection) HIV 1/2 ANTIGEN/ANTIBODY, FOURTH GENERATION W/RFL Routine 04/21/2023 11:48 AM EST Routine screening for STI (sexually transmitted infection) PAP SMEAR Routine 02/27/2019 12:00 AM EST from Last 3 Months or Most Recently Relevant to Health Maintenance Results * XR Chest 2 Views (07/25/2024 3:58 PM EDT) Anatomical Region Laterality Modality Chest Radiographic Katie ging 07/25/2024 3:5 8 PM EDT Narrative 07/25/2024 4:45 PM EDT ?[facility] ?[address] ?[place] [address] ?XRay Report ? Signed ? Patient: Jessica Ma ?MR#: [id number] ? : 1995 ?Acct:[id number] ? Age/Sex: 29 / F ?ADM Date: 07/25/24 ? Loc: HO.HHCX ? Attending Dr: Ashanti Simmons MD ? Ordering Physician: Ashanti Simmons MD ?? Date of Service: 07/25/24 ?? Procedure(s): XR chest 2V ?? Accession Number(s): [id number] ? cc: Ashanti Simmons MD ? EXAMINATION: ?? XR CHEST ? CLINICAL INFORMATION: ?? worsening cough now with fever after 7 days ? COMPARISON: ?? Chest x-ray 04/14/2023 ? TECHNIQUE: ?? 2 views of the chest were obtained. ? FINDINGS: ?? No significant abnormality is noted involving the heart, lungs, ?? mediastinum, bony thorax or soft tissues. ? XR/XR chest 2V ?? IMPRESSION: ?? Unremarkable chest examination. ? Electronically signed by: ??Juan Kiera MD ??07/25/2024 04:42 PM EDT RP ? Dictated By: ?Kiera,Juan S MD ? Signed By: ?<Electronically signed by Juan S Kiera, MD in OV> ?07/25/ 1642 ? DD/ 1558 ? TD/TT: // 1622 ? Merchandising Team Lead: MSM ? Procedure Note Donotuseinterpreter, Image - 07/25/2024 [facility] [address] [place] [address] XRay Report Signed Patient: Jessica MaMR#: [id number] : 1995Acct:[id number] Age/Sex: 29 / FADM Date: 07/25/24 [facility] Dr: Ashanti Simmons MD Ordering Physician: Ashanti Simmons MD Date of Service: 07/25/24 Procedure(s): XR chest 2V Accession Number(s): [id number] cc: Ashanti Simmons MD EXAMINATION: XR CHEST CLINICAL INFORMATION: worsening cough now with fever after 7 days COMPARISON: Chest x-ray 04/14/2023 TECHNIQUE: 2 views of the chest were obtained. FINDINGS: No significant abnormality is noted involving the heart, lungs, mediastinum, bony thorax or soft tissues. XR/XR chest 2V IMPRESSION: Unremarkable chest examination. Electronically signed by: Juan Qureshi MD 07/25/2024 04:42 PM EDT Dictated By: Juan Qureshi MD Signed By: <Electronically signed by Juan Qureshi MD in OV> 07/25/24 1642 DD/ 1558 TD/TT: 07/25/24 1622 Merchandising Team Lead: [facility] Ashanti Simmons MD IMG XR PROCEDURES Final Re sult * Influenza B (ID NOW Rapid Molecular) (07/25/2024 3:44 PM EDT) Influenza B Negative Negative, Indeterminate [facility] Swab 07/25/2024 3:44 PM EDT Ashanti Simmons MD POINT OF CARE TEST ENTER/E DIT ORDERABLES Final Result [facility] [address] [place] [phone] * Influenza A (ID NOW Rapid Molecular) (07/25/2024 3:43 PM EDT) Influenza A Negative Negative, Indeterminate [facility] Swab 07/25/2024 3:43 PM EDT us Ashanti Simmons MD POINT OF CARE TEST ENTER/E DIT ORDERABLES Final Result Performing Organization Address [facility] Co de Phone Number [facility] [address] [place] [phone] * POCT Rapid COVID Ag (07/25/2024 3:34 PM EDT) Pathologist [facility] Rapid COVID Ag Negative Swab 07/25/2024 3:34 PM EDT Ashanti Simmons MD POINT OF CARE TEST ENTER/E DIT ORDERABLES Final Result * Hemoglobin A1c (12/04/2023 11:15 AM EDT) Pathologist [facility] Hemoglobin A1c 5.9 <6.0 % [facility] Comment:Hemoglobin A1C Refer ence Range Adults: 4.8 - 6.0 % Non diabetic: < 6.0 % Goal: < 7.0 %Additional Action Suggested: > 8.0 %Note: Hemoglobin A1c results are invalid for patients with abnormal amounts of HbF. Blood transfusions may impact the HbA1c concentration in the patient sample. Estimated Average Glucose 123 mg/dL [facility] Comment:eAG = Estimated ave rage glucose which is %A1C expressed asaverage glucose, using the formula of the F0K-RteuounStkjpxp Glucose study (ADAG), Diabetes Care, Vol.31,#8,Nov. 2007 Blood Venous blood specimen / Unknown 12/04/2023 11:15 AM EDT 12/04/2023 1:07 PM EDT Jeannette Quiroga NP LAB BLOOD ORDERABLES Final Resu lt Performing Organization Address City/[facility]/ZIP Co de Phone Number [facility] [address] [place] [phone] * (ABNORMAL) Lipid Panel, Standard (12/04/2023 11:15 AM EDT) Triglycerides 100 <150 mg/dL [facility] Comment:Desirable Triglyceri de: less than 150 mg/dLBorderline High Triglyceride 150-199 mg/dLHigh Triglyceride: 200-499 mg/dLVery High Triglyceride: greater than or equal to 5OO mg/dL Cholesterol 126 <200 mg/dL [facility] Comment:Desirable Cholestero l: less than 200 mg/dLBorderline High Cholesterol: 200-239 mg/dLHigh Cholesterol: greater than 239 mg/dL LDL Cholesterol Calculated 75 <100 mg/dL [facility] Comment:Desirable LDL: less than 100 mg/dLNear Optimal/Above Optimal LDL: 110- 129 mg/dLBorderline High LDL: 130-159 mg/dLHigh LDL: 160-189 mg/dLVery High LDL: greater than or equal to 190 mg/dL HDL Cholesterol 31(L) >40 mg/dL [facility] Comment:Desirable HDL: great er than 40 mg/dL Note: This HDL assay may give artificially low results in patients with liver disease. Blood Venous blood specimen / Unknown 12/04/2023 11:15 AM EDT 12/04/2023 1:07 PM EDT us Jeannette Quiroga TAPER MACHINE LAB BLOOD ORDERABLES Final Resu lt [facility] [address] [place] [phone] * Hepatitis Panel, General (04/21/2023 11:48 AM EST) Pathologist [facility] Hepatitis A IgM Nonreactive Nonreactive [facility] Comment:IgM antibodies to LLANES V not detected; does not exclude earlyacute or recovered HAV infection. ~Hepatitis B Surface Antibody NONREACTIVE Nonreactive [facility] Comment:Nonreactive: < 8.00 mIU/mL Hepatitis B Core Antibody Nonreactive Nonreactive [facility] Hepatitis C Antibody Nonreactive Nonreactive [facility] Comment:Antibodies to HCV no t detected; does not exclude early acuteHCV infection. Hepatitis B Surface Ag Negative Negative [facility] Blood 04/21/2023 11:4 8 AM EST 04/21/2023 1:04 PM EST Jeannetet Prado TAPER MACHINE LAB BLOOD ORDERABLES Final Resu lt Performing Organization Address City/[facility]/ZIP Co de Phone Number [facility] [address] [place] [phone] * HIV-1/2 Antigen and Antibodies, Fourth Generation, with Reflexes (04/21/2023 11:48 AM EST) Pathologist [facility] HIV AB/AG Nonreactive Nonreactive [facility] Comment:HIV-1 p24 Ag and/or HIV-1/HIV-2 Ab not detected.A test result that is nonreactive does not exclude thepossibility of exposure to or infection with HIV-1 and/orHIV-2. Nonreactive results in this assay for individualswith prior exposure to HIV-1 and/or HIV-2 may be due toantigen and antibody levels that are below the limit ofdetection of this assay.The [employer] HIV Ag/Ab Combo assay result andsupplemental assay results should be interpreted inconjunction with the patient's clinical presentation,history and other laboratory results. If the results areinconsistent with clinical evidence, additional testing issuggested to confirm the result. Blood Venous blood specimen / Unknown 04/21/2023 11:48 AM EST 04/21/2023 1:04 PM EST Jeannette Prado TAPER MACHINE LAB BLOOD ORDERABLES Final Resu lt Performing Organization Address City/[facility]/ZIP Co de Phone Number [facility] [address] [place] [phone] * Pap Smear (02/27/2019 12:00 AM EST) Swab Historical Provider LAB CYTOLOGY ORDERABLES F inal Result [facility] [address] [place] [address] from Last 3 Months or Most Recently Relevant to Health Maintenance [facility] Care Teams Inside Sales Recruiter Relationship Specialty Start Date End Date Jeannette Quiroga NP [address] [place] [address] PCP - General Family Medicine 01/17/23
--- OUTSIDE RECORDS SUMMARY | 2024-07-25 18:15 | XMS_ITS | Encounter Summary ---
Author Organization [employer] Address [address] [place] [address] Care Team Providers Care Supervisor Coating Name Role Phone Jeannette Quiroga NP Primary Care Provider [phone] Reason for Visit * Reason Comments Cough Encounter Details Date Type Department Care Team ([facility] Contact Info) Description 07/25/2024 3:20 PM EDT Office Visit [facility] [address] [place] [phone] Ashanti Simmons MD [address] [place] [address] Cough productive of yellow sputum (Primary Dx); Dysuria Social History Tobacco Use Types Packs/Day Years Used Date Smoking Tobacco: Former Cigarettes 0.3 10 2 - 2021 Passive Smoke Exposure: Never Smokeless [...] is your housing situation today? I have adela long 02/13/[address] you [...] not to disclose 2021 10:19 AM EDT documented as of this encounter Last Filed Vital Signs Vital Sign Reading Time Taken Comments Blood Pressure 129/87 07/25/2024 3:30 PM EDT Pulse 108 07/25/2024 3:30 PM EDT Temperature 36.8 ??C (98.3 ??F) 07/25/2024 3:30 PM ED T Respiratory Rate 18 07/25/2024 3:30 PM EDT Oxygen Saturation 96% 07/25/2024 3:30 PM EDT Inhaled Oxygen Concentration - - Weight 166 kg (366 lb) 07/25/2024 3:30 PM EDT Height - - Body Mass Index 54.05 12/04/2023 9:54 AM EDT documented in this encounter Progress Notes * Kenyatta Ochoa - 07/25/2024 3:20 PM EDT Subjective History was provided by the patient. Jessica Ma is a 29 y.o. female with past medical history of tonsillar hypertrophy who presents for evaluation of symptoms of a URI. Symptoms include cough, fever, and yellow, green, and thick. Onset of symptoms was 7 week ago, significantly worsened yesterday since that time. Associated negative symptoms include nausea, vomiting, diarrhea, and chest pain. Evaluation to date: none. Treatment to date: none. Pt reports she had pneumonia before and this feels consistent with then. She reports vaginal itching/discomfort and burning. Denies vaginal discharge or bleeding. Denies any chance of . Objective Vitals: 07/25/24 1530 BP: 129/87 BP Location: Right arm Patient Position: Sitting BP Cuff Size: Adult Pulse: 108 Resp: 18 Temp: 98.3 ??F (36.8 ??C) TempSrc: Temporal SpO2: 96% Weight: 366 lb (166 kg) Physical Exam Constitutional: Appearance: Normal appearance. HENT: Right Ear: Tympanic membrane normal. Left Ear: Tympanic membrane normal. Nose: Congestion present. No rhinorrhea. Mouth/Throat: Pharynx: Oropharynx is clear. No oropharyngeal exudate. Eyes: Conjunctiva/sclera: Conjunctivae normal. Cardiovascular: Rate and Rhythm: Normal rate and regular rhythm. Heart sounds: Normal heart sounds. Pulmonary: Effort: Pulmonary effort is normal. Breath sounds: Normal breath sounds. Comments: Cough during exam Musculoskeletal: Cervical back: Normal range of motion. No rigidity or tenderness. Neurological: Mental Status: She is alert. Psychiatric: Behavior: Behavior normal. Office Visit on 07/25/2024 Component Date Value Ref Range Status Influenza A 07/25/2024 Negative Negative, Indeterminate Final Influenza B 07/25/2024 Negative Negative, Indeterminate Final Rapid COVID Ag 07/25/2024 Negative Final Problem List Items Addressed This Visit Cough productive of yellow sputum - Primary COVID, Flu and Strep negative. No evidence of respiratory distress. Reports cough x10 days, worsening this morning with fever and green/yellow sputum. No evidence of dehydration. -Ordered CXR -Prescribed azithromycin (Zithromax) 250 MG, empirically. -Supportive care advised. -Isolation recommendations discussed. Relevant Medications azithromycin (Zithromax) 250 MG tablet Other Relevant Orders Influenza A (ID NOW Rapid Molecular) (Completed) Influenza B (ID NOW Rapid Molecular) (Completed) POCT Rapid COVID Ag (Completed) XR Chest 2 Views Dysuria Reports dysuria and vaginal itching. -sent UA and culture. -vaginal swab obtained to test for BV, yeast, and STI -will treat accordingly pending test results Relevant Orders Urinalysis, Complete, with Reflex to Culture Bacterial Vaginosis Panel Chlamydia/N. Gonorrhoeae RNA, TMA, Urine -No evidence of acute disease process. Suspect bronchitis versus pneumonia. Symptoms mild. -Will treat with abx and ordered CXR. -ER precautions discussed. -Seek medical attention for worsening symptoms. I, Kenyatta Ochoa, am serving as a scribe to document services personally performed by Dr. Kang, based on the patient's response to questions by provider and providers statements to me. documented in this encounter Miscellaneous Notes * Assessment & Plan Note - Kenyatta Ochoa - 07/25/2024 3:52 PM EDTAssociated Problem(s): Dysuria Reports dysuria and vaginal itching. -sent UA and culture. -vaginal swab obtained to test for BV, yeast, and STI -will treat accordingly pending test results * Assessment & Plan Note - Kenyatta Ochoa - 07/25/2024 3:51 PM EDTAssociated Problem(s): Cough productive of yellow sputum COVID, Flu and Strep negative. No evidence of respiratory distress. Reports cough x10 days, worsening this morning with fever and green/yellow sputum. No evidence of dehydration. -Ordered CXR -Prescribed azithromycin (Zithromax) 250 MG, empirically. -Supportive care advised. -Isolation recommendations discussed. documented in this encounter Plan of Treatment Scheduled Orders Name Type Priority Associated Diagnoses Orde r Schedule Urinalysis, Complete, with Reflex to Culture Lab Routine Dysuria Expected: 07/25/2024 (Approximate), Expires: 07/25/2025 Bacterial Vaginosis Panel Microbiology Routine Dysuria Ordered: 07/25/2024 Urinalysis, Complete, with Reflex to Culture Lab Routine Dysuria Expected: 07/25/2024 (Approximate), Expires: 07/25/2025 Chlamydia/N. Gonorrhoeae RNA, TMA, Urogenitial Microbiology Routine Dysuria Ordered: 07/25/2024 documented as of this encounter Procedures Procedure Name Priority Date/Time Associated Diagnosis [...] PM EDT Cough productive of yellow sputum documented in this encounter Results * XR Chest 2 Views (07/25/2024 3:58 PM EDT) Anatomical Region Laterality Modality Chest Radiographic Katie ging 07/25/2024 3:58 PM EDT Narrative 07/25/2024 4:45 PM EDT ?[facility] ?[address] ?[place] [address] ?XRay Report ? Signed ? Patient: Jessica Ma ?MR#: [id number] ? : 1995 ?Acct:[id number] ? Age/Sex: 29 / F ?ADM Date: 07/25/ ? Loc: HO.HHCX ? Attending Dr: Ashanti Simmons MD ? Ordering Physician: Ashanti Simmons MD ?? Date of Service: 07/25/24 ?? Procedure(s): XR chest 2V ?? Accession Number(s): [id number] ? cc: Ashanti Simmons MD ? EXAMINATION: [...] chest examination. ? Electronically signed by: ??Juan Qureshi MD ??07/25/2024 04:42 PM EDT RP ? Dictated By: ?Juan Qureshi MD ? Signed By: ?<Electronically signed by Juan Qureshi MD in OV> ?07/25/241641 ? DD/ 1558 ? TD/TT: 07/25/24 1622 ? Retort Unloader: MSM ? Procedure Note Donotuseinterpreter, Image - 07/25/[address] [address] XRay Report Signed Patient: Jessica MaMR#: [id number] : 1995Acct:[id number] Age/Sex: 29 / FADM Date: 07/25/24 Loc: .HHCX Attending Dr: Ashanti Simmons MD Ordering Physician: Ashanti Simmons MD Date of Service: 07/25/24 Procedure(s): XR chest 2V Accession Number(s): [id number] cc: Ashanti Simmons MD EXAMINATION: XR CHEST [...] 07/25/24 1642 DD/ 1558 TD/TT: 07/25/24 1622 Retort Unloader: MSM Ashanti Simmons MD IMG XR PROCEDURES Final Re sult * Influenza B (ID NOW Rapid Molecular) (07/25/2024 3:44 PM EDT) [facility] Influenza B Negative Negative, Indeterminate [facility] Swab 07/25/2024 3:44 PM EDT us Ashanti Simmons MD POINT OF CARE TEST ENTER/E DIT ORDERABLES Final Result Performing Organization Address [facility]/ZIP Co de Phone Number [facility] [address] [place] [phone] * Influenza A (ID NOW Rapid Molecular) (07/25/2024 3:43 PM EDT) [facility] Influenza A Negative Negative, Indeterminate [facility] Swab 07/25/2024 3:43 PM EDT Ashanti Simmons MD POINT OF CARE TEST ENTER/E DIT ORDERABLES Final Result Performing Organization Address [facility] Co de Phone Number [facility] [address] [place] [phone] * POCT Rapid COVID Ag (07/25/2024 3:34 PM EDT) [facility] Rapid COVID Ag Negative Swab 07/25/2024 3:34 PM EDT us Ashanti Simmons MD POINT OF CARE TEST ENTER/E DIT ORDERABLES Final Result documented in this encounter Visit Diagnoses Diagnosis Cough productive of yellow sputum- Primary Dysuria documented in this encounter Additional Health Concerns Assessment Noted Time PHQ-9 Depression Total Score: 5 12/04/19 24 10:37 AM EDT documented as of this encounter Care Teams Supervisor Coating Relationship Specialty Start Date End Date Jeannette Quiroga NP [address] [place] [phone] PCP - General Family Medicine 01/17/23 documented as of this encounter
--- OUTSIDE RECORDS SUMMARY | 2024-07-25 18:15 | XMS_ITS | Encounter Summary ---
Author Organization [employer] Address [address] [place] [address] Care Team Providers Care Supervisor Speech Name Role Phone Jeannette Quiroga NP Primary Care Provider [phone] Encounter Details Date Type Department Care Team (Latest Contact Info) Description 07/25/2024 Travel Social History Tobacco Use Types Packs/Day Years [...] AM EDT documented as of this encounter Plan of Treatment Not on file documented as of this encounter Visit Diagnoses Not on filedocumented in this encounter Additional Health Concerns Assessment Noted Time PHQ-9 Depression Total Score: 5 12/04/19 24 10:37 AM EDT documented as of this encounter Care Teams Supervisor Speech Relationship Specialty Start Date End Date Jeannette Quiroga NP [address] [place] [phone] PCP - General Family Medicine 01/17/23 documented as of this encounter
--- OUTSIDE RECORDS SUMMARY | 2024-07-25 18:15 | XMS_ITS | Encounter Summary ---
Author Organization [employer] Address [address] [facility] [address]t [place] [address] Care Team Providers Care Networker Name Role Phone Jeannette Quiroga NP Primary Care Provider [phone] Reason for Visit * Reason Onset Date Comments Appointment Request 03/16/2023 Encounter Details Date Type Department Care Team ([facility] Contact Info) Description 03/16/2023 Telephone [facility] MEDICINE [address] [place], [place] [phone] Jeannette Quiroga NP [address] [place] [address] Appointment Request Social History Tobacco Use Types Packs/Day Years Used Date Smoking Tobacco: Former Cigarettes 0.3 10 2 2021 Passive Smoke Exposure: Never Smokeless Tobacco: Never Alcohol Use Standard Drinks/Week Comments Yes 2 (1 standard drink = 0.6 oz pur e alcohol) Socially Housing Stability Answer Date Recorded What is [...] Answer Date Recorded Patient Health Questionnaire-2 Score 0 09/16/2022 Comments Unknown Sex and Gender Information Value Date Recorded Sex Assigned at Female 02/07/2022 10:19 AM EDT Legal Sex Female 10:19 AM EDT Gender Identity Female 02/07/2022 10:19 AM EDT Sexual Orientation Choose not to disclose 2021 10:19 AM EDT documented as of this encounter Miscellaneous Notes * Telephone Encounter - Unique Ramey - 03/16/2023 3:07 PM EST Tc from pt requesting PE appt. Water Valve Repairer attempted to schedule no availability for March. documented in this encounter Plan of Treatment Not on file documented as of this encounter Visit Diagnoses Not on filedocumented in this encounter Care Teams Networker Relationship Specialty Start Date End Date Jeannette Quiroga NP [address] [place] [address] PCP - General Family Medicine 01/17/23 documented as of this encounter
--- OUTSIDE RECORDS SUMMARY | 2024-07-25 18:15 | XMS_ITS | Encounter Summary ---
Author Organization [employer] Address [address] [place] [address] Care Team Providers Care Greenhouse Superintendent Name Role Phone Jeannette Quiroga NP Primary Care Provider [phone] Reason for Visit * Reason Onset Date Comments Appointment Request 08/23/2023 Encounter Details Date Type Department Care Team ([facility] Contact Info) Description 08/23/2023 Telephone [facility] MEDICINE [address] [place], [place] [phone] Jaennette Quiroga NP [address] [place] [address] Appointment Request Social History Tobacco Use Types Packs/Day Years Used Date Smoking Tobacco: Former Cigarettes 0.3 10 2 - 2021 Passive Smoke Exposure: Never Smokeless Tobacco: Never Comments:Is now currently sm oking about 4-5 a day, depending on stressors Alcohol Use Standard Drinks/Week Comments Yes 2 (1 standard drink = 0.6 oz pur e alcohol) Socially Depression Answer Date Recorded Patient Health Questionnaire-9 Score 12 04/21/2023 Patient Health Questionnaire-9 Score 12 04/21/2023 Last PHQ-9: Questionnaire Data Not on file 0 04/21/2023 Housing Stability Answer Date Recorded What is [...] Answer Date Recorded Patient Health Questionnaire-2 Score 2 04/21/2023 Comments Unknown Sex and Gender Information Value Date Recorded Sex Assigned at Female 02/07/2022 10:19 AM EDT Legal Sex Female 10:19 AM EDT Gender Identity Female 02/07/2022 10:19 AM EDT Sexual Orientation Choose not to disclose 2021 10:19 AM EDT documented as of this encounter Miscellaneous Notes * Telephone Encounter - Unique Ramey - 08/23/2023 10:01 AM EDT Tc from pt requesting to r/s Follow up appt scheduled for 08/23/23 with PCP due to transportation, appt has been cancelled. Pt is also requesting a PE for weight management. Last PE was in 2021. documented in this encounter Plan of Treatment Not on file documented as of this encounter Visit Diagnoses Not on filedocumented in this encounter Additional Health Concerns Assessment Noted Time PHQ-9 Depression Total Score: 12 024 10:35 AM EST documented as of this encounter Care Teams Greenhouse Superintendent Relationship Specialty Start Date End Date Jeannette Quiroga NP [address] [place] [address] PCP - General Family Medicine 01/17/23 documented as of this encounter
--- OUTSIDE RECORDS SUMMARY | 2024-07-25 18:15 | XMS_ITS | Encounter Summary ---
Author Organization [employer] Address [address] [facility] 7[address] [place] [address] Care Team Providers Care Silk Screen Frame Assembler Name Role Phone Anamaria Sherwood Primary Care Provider [phone] Jeannette Quiroga NP Primary Care Provider [phone] Reason for Visit * Reason Comments Med Refill Encounter Details Date Type Department Care Team ([facility] st Contact Info) Description 12/16/2022 Refill [facility] [address] [place] [phone] Orquidea Wynn MD [address] [place] [address] Left upper quadrant abdominal pain Social History Tobacco Use Types Packs/Day Years Used Date Smoking Tobacco: Former Cigarettes 0.3 10 2 2021 Passive Smoke Exposure: Never Smokeless Tobacco: Never Alcohol Use Standard Drinks/Week Comments Yes 2 (1 standard drink = 0.6 oz pur e alcohol) Socially Depression Answer Date Recorded Patient Health Questionnaire-2 [...] documented as of this encounter Visit Diagnoses Diagnosis Left upper quadrant abdominal pain documented in this encounter Care Teams Silk Screen Frame Assembler Relationship Specialty Start Date End Date Anamaria Sherwood FNP PCP - General Family Medicine 12/08/21 01/16/23 Jeannette Quiroga NP [address] [place] [phone] PCP - General Family Medicine 01/17/23 documented as of this encounter
== END 2024-07-25 15:59 | disposition home or self-care (01) ==
LOC: HO.HHCX 15:58
PROVIDERS: Visit Provider Family Medicine
DX: R05.8 Other specified cough (principal)
CPT/HCPCS: 71046

== ENCOUNTER → 2024-07-25 15:58 | Outpatient (BNV) | payer MEDICAID, SELFPAY | PROVIDERS: Visit Provider Radiology Diagnostic Radiology | DX: R05.9 Cough, unspecified (principal) | CPT/HCPCS: 71046 ==

== ENCOUNTER 2024-07-25 17:44 | Outpatient (REF) | payer MEDICAID, SELFPAY ==
[2024-07-26 12:16] LABS: CT PCR NOT DETECTED (Not Detect.); NG PCR NOT DETECTED (Not Detect.)
[2024-07-26 16:19] LABS: Bacterial Vaginosis PCR NEGATIVE (Negative); Candida Group PCR NOT DETECTED (Not Detect); Candida glab krusei PCR NOT DETECTED (Not Detect); Trichomonas vaginalis PCR NOT DETECTED (Not Detect)
== END 2024-07-25 17:45 | disposition home or self-care (01) ==
LOC: HO.HHCLNP 17:44
PROVIDERS: Visit Provider Family Medicine
DX: R30.0 Dysuria (principal)
CPT/HCPCS: 81515; 87491; 87591